=== PATIENT | female | born 1970 | race Caucasian/White ===

== ENCOUNTER 2022-12-08 11:13 | Day surgery (SDC) | payer OTHER, SELFPAY ==
[2022-12-01 15:41] VITALS: BMI 34.6
[2022-12-08] VITALS (8 sets, daily range): BP systolic 106–140; BP diastolic 47–77; PULSE 76–103; RESP 15–18; TEMP 36.1–36.6; O2SAT 97–100
[2022-12-08] MEDS: Lactated Ringers 1,000 ML 50 ML IVCONT (12:03)
--- NOTE | 2022-12-08 13:13 | HO.ANESPROP2 ---
[facility] Past Medical History Medical History Allergic rhinitis Anxiety Asthma B12 deficiency Breast cancer, right Chronic depression Hypothyroidism Iron deficiency anemia Obesity Osteopenia Surgical History Surgical History History of abdominoplasty History of arthrodesis History of carpal tunnel release History of cataract surgery History of cholecystectomy History of esophagogastroduodenoscopy (EGD) History of gastric bypass History of lumpectomy of right breast Hx of abdominal hysterectomy Hx of bilateral breast reduction surgery Hx of bilateral mastectomy Hx of section History of Problems with Anesthesia: No Social History Social History Are you a primary nurse healthcare manager to a significant other at home: No Do you presently have visiting nurse or other home services: No Patient Tobacco Use Status: Never used Tobacco Have you been hit, kicked, punched, or otherwise hurt by someone within the past year? If so, by whom?: No Are you DNR?: No Advance Directives: No Advance Directives Information Provided: Yes Advance Directives on File: No Recently lost weight without trying: No Eating poorly because of decreased appetite: No Nutrition Risks: No Nutritional Risk Meds Allergies Allergy/AdvReac Type Severity Reaction Status Date / Time Penicillins Allergy Hives Verified 12/08/22 11:32 povidone-iodine Allergy Hives Verified 12/08/22 11:32 [From Betadine] NSAIDS (Non-Steroidal AdvReac Stomach Verified 12/08/22 11:32 Anti-Inflamma Upset, Ulcer Active Medications: Current Medications Lactated Ringer's (Lr) 1,000 mls @ 50 mls/hr IVCONT .Q20H LESTER Last Admin: 12/08/22 12:03 Dose: 50 mls/hr Home Medications Medication Instructions Recorded Confirmed Last Taken Type acetaminophen 500 mg tablet 1,000 mg PO QID PRN Pain 12/01/22 12/01/22 Unknown History cholecalciferol (vitamin D3) 25 25 mcg PO DAILY 12/01/22 12/01/22 Unknown History mcg (1,000 unit) capsule (Vitamin D3) cyanocobalamin (vitamin B-12) 1,000 mcg IM QMONTH 12/01/22 12/01/22 Unknown History 1,000 mcg/mL injection solution cyclobenzaprine 5 mg tablet 5 mg PO BID PRN Muscle Spasm 12/01/22 12/01/22 Unknown History ferrous sulfate 325 mg (65 mg 325 mg PO DAILY 12/01/22 12/08/22 11/23/22 History iron) tablet fluticasone propionate 50 1 spray intranasal Q12H 12/01/22 12/01/22 Unknown History mcg/actuation nasal spray,suspension hydroxyzine HCl 10 mg tablet 10 mg PO TID PRN Anxiety 12/01/22 12/01/22 Unknown History levocetirizine 5 mg tablet 5 mg PO QPM 12/01/22 12/01/22 Unknown History levothyroxine 137 mcg tablet 137 mcg PO DAILY 12/01/22 12/08/22 12/08/22 07:15 History melatonin 10 mg tablet 20 mg PO BEDTIME 12/01/22 12/01/22 Unknown History sertraline 50 mg tablet 50 mg PO DAILY 12/01/22 12/01/22 Unknown History Exam Exam Date and Time: December 08, 2022 1313 Height,Weight and Vital Signs: Height 5 ft Weight 80.5 kg Last Vital Signs Temp 96.9 F 12/08/22 11:43 Pulse 76 12/08/22 11:43 Resp 15 12/08/22 11:43 BP 106/47 L 12/08/22 11:43 Pulse Ox 99 12/08/22 11:43 O2 Del Method 12/08/22 11:43 Airway Mallampati Class: II (Chipped upper left central incisor) Neck ROM: Full Loose/Missing/Broken Teeth: Yes and Upper Heart: RRR Lungs: CTA Assessment and Plan Assessment Anesthesia Assessment: Anesthesia Plan Discussed and Chart Reviewed Final Anesthetic Review History of Problems with Anesthesia: No NPO: Yes ASA Class: II Final Preanesthetic Review: Meds/Allgs Chart Reviewed, Consent Obtained/Reviewed and Anes Risks/Benef Reviewed Patient Risk: Low Procedure Risk: Low Anesthetic Plan Anesthetic Plan: GA Disposition: Standard PACU
[2022-12-08] MEDS: Acetaminophen 325 MG TABLET 650 MG PO (15:11)
[2022-12-08] MEDS: Tetracaine HCl/PF 0.5% Oph Sol 4 ML DROPS 1 DROP EYE-BOTH (15:27)
--- NOTE | 2022-12-08 16:04 | HO.OPHTHAL ---
Ophthalmology Operative Note Date of Service: 12/08/22 Narrative: the preoperative diagnosis unknown. Postoperative diagnosis brown syndrome left eye. Procedure posterior 7/8 tenotomy of the left superior oblique muscle. Surgeon Dr. Jones. Anesthesia general. Complications none. The patient was brought to the operating room placed under general anesthesia. The patient's eyes were prepped and draped in the usual sterile ophthalmic fashion. A lid speculum was placed in the left eye and forced ductions revealed some resistance to elevation in abduction of that eye. There was no evidence of previous surgeries. An incision was made down to bare sclera in the superior temporal fornix. The superior rectus muscle was hooked and the superior oblique carefully identified and grasped with a small tenotomy hook. The 2nd tenotomy hook was used to separate the posterior portion of the tendon which was then disinserted from the globe and removed for distance of approximately 9 mm from the insertion. Repeated forced ductions revealed no resistance to elevation in adduction. Conjunctiva was closed with interrupted Vicryl sutures. The patient was then awoken from general anesthesia and discharged to postoperative recovery in good condition.
== END 2022-12-08 15:58 | disposition home or self-care (01) ==
PROVIDERS: PCP Internal Medicine; Visit Provider Ophthalmology
DX: H50.6 Mechanical strabismus (principal); H53.2 Diplopia; J45.909 Unspecified asthma, uncomplicated; D50.9 Iron deficiency anemia, unspecified; M85.80 Other specified disorders of bone density and structure, unspecified site; E66.9 Obesity, unspecified; Z85.3 Personal history of malignant neoplasm of breast; F32.9 Major depressive disorder, single episode, unspecified; Z88.0 Allergy status to penicillin; Z91.041 Radiographic dye allergy status; Z79.51 Long term (current) use of inhaled steroids; Z79.899 Other long term (current) drug therapy
CPT/HCPCS: 67318; J1100; J2250; J2405; J3010

== ENCOUNTER 2023-04-27 11:40 | Day surgery (SDC) | payer OTHER, SELFPAY ==
[2023-04-22 08:23] VITALS: BMI 35.5
--- OUTSIDE RECORDS SUMMARY | 2023-04-27 11:42 | XMS_ITS | Continuity of Care Document ---
Author Name Unknown Organization [facility] Address [address] [place] [address]- Care Team Providers Care Board Stacker Name Role Phone Eze BOWEN, Zeinab Primary Care Physician [place] [facility] 02/15/23 - 03/17/23 [facility]/[address] [address]- [place] Allergies, Adverse Reactions, Alerts Substance Reaction Severity Status penicillin HIVES Active Betadine hives Active NSAIDs Ulcer Active Immunizations Given and Recorded Vaccine Date Status Refusal Reason influenza virus vaccine, inactivated 07/27/22 Give n influenza virus vaccine, inactivated 10/07/21 Give n influenza virus vaccine, inactivated 08/26/20 Rush rded influenza virus vaccine, inactivated 10/20/18 Give n influenza virus vaccine, inactivated 1 08/05/10 Gi santosh influenza virus vaccine, inactivated 2 09/17/09 Gi santosh SARS-CoV-2 (COVID-19) mRNA BNT-162b2 vac 10/28/21 Given SARS-CoV-2 (COVID-19) mRNA BNT-162b2 vac 10/07/21 Given Influenza Virus Vaccine (oldterm) 3 10/25/19 Recor ded hepatitis B adult vaccine 08/21/19 Recorded hepatitis B adult vaccine 11/17/18 Given hepatitis B adult vaccine 10/20/18 Given Hepatitis A Adult Vaccine 08/21/19 Recorded Hepatitis A Adult Vaccine 10/20/18 Given influenza virus vaccine, live 4 09/17/09 Given 1Admin Note: VIS07/18/09 gIVEN 2Admin Note: flu vaccine sanofi-pasteur VIS 03/2009 INNER 3Result Comment: Pharmacy 4Admin Note: SANOFI-PASTEUR VIS 04/15/2009 OUTER Medications acetaminophen 500 mg oral tablet 2 tablet = 1,000 mg, By Mouth, 3 times a day, PRN as needed for pain, # 50 tablet, 5 Refills, Maintenance, 11/10/20 11:56:00 EST, Tablet, [facility]/pharmacy #[id number], 152.4, cm, 11/07/20 12:02:00 EST, Height,78, kg, 05/15/20 8:23:00 EDT, Dry Weight Start Date: 11/10/20 Status: Ordered clotrimazole 1% topical cream 1 application, Topically, 2 times a day, apply thin later to affected area twice a day., # 30 Gm, 0Refills, Maintenance, 03/15/23 11:39:00 EDT, Cream, [facility], Partial fill uponpatient request if the prescription is for a schedule I... Start Date: 03/15/23 Status: Ordered cyanocobalamin 1000 mcg/ml injectable solution 1 mL = 1,000 mcg, Intramuscular, Every 30 days, # 1 mL, 11 Refills, Maintenance, 07/27/22 12:30:00 EDT, Solution, [facility], 152.4, cm, 07/27/22 11:29:00 EDT, Height, 83.8, kg, 06/24/22 9:47:00 EDT, Dry Weight Start Date: 07/27/22 Status: Ordered cyclobenzaprine 5 mg oral tablet 1 tablet = 5 mg, By Mouth, 2 times a day, PRN back pain, hold trazodone if taking it at HS, allow at least 5 hours between this mediation and hydroxyzine or lorazepam. do not drive after taking this medication, # 60 tablet, 0 Refills, Maintenance, ... Start Date: 12/21/21 Status: Ordered diclofenac 1% topical gel 1 application, Topically, 4 times a day, # 100 Gm, 0 Refills, Maintenance, 04/22/22 14:54:00 EDT, Gel, [facility], Partial fill upon patient request if the prescription is for a schedule II opioid drug., 152.4, cm, 04/22/22 13:52:00 EDT,... Start Date: 04/22/22 Status: Ordered ferrous sulfate 325 mg oral enteric coated tablet 325 mg, 1, tablet, By Mouth, Daily, may take with food to minimize abdominal discomfort. DISCONTINUE MULTIVITAMIN, # 30 tablet, Refills 11, Tot. Refills 11, Maintenance, 08/09/22 18:53:00 EDT, Route to Pharmacy Electronically, [id number]... Start Date: 08/09/22 Status: Ordered Flonase 50 mcg/inh nasal spray 1 sprays, Nares, Both, 2 times a day, # 16 Gm, 6 Refills, Maintenance, 02/15/22 14:24:00 EDT, [place], [facility], Partial fill upon patient request if the prescription is for a schedule II opioid drug., 1 sprays Nares, Both 2 times a day,... Start Date: 02/15/22 Status: Ordered hydrOXYzine hydrochloride 10 mg oral tablet 1 tablet = 10 mg, By Mouth, 3 times a day, PRN anxiety/panic attack, covering for Psych.., # 30 tablet, 0 Refills, Maintenance, 09/21/22 15:57:00 EST, Tablet, [facility], Partial fill upon patient request if the prescription is for a katherine... Start Date: 09/21/22 Stop Date: 10/21/22 Status: Ordered Insulin Syringe, BD Ultra-Fine 1 cc 31 G x 8 mm (5/16in) See Instructions, # 12 each, Refills 1, Tot. Refills 1, Maintenance, dx: to use with B12 injectionsmonthly, 07/27/22 12:30:00 EDT, Compound, 152.4, cm, 07/27/22 11:29:00 EDT, Height, 83.8, kg, 06/24/22 9:47:00 EDT, Dry Weight Start Date: 07/27/22 Status: Ordered levocetirizine 5 mg oral tablet 1 tablet = 5 mg, By Mouth, Daily in PM, # 30 tablet, 6 Refills, Maintenance, 02/15/22 14:09:00 EDT,Tablet, [facility], Partial fill upon patient request if the prescription is for a schedule II opioid drug., 1 tablet By Mouth Daily in P... Start Date: 02/15/22 Stop Date: 09/13/22 Status: Ordered levothyroxine 0.112 mg oral tablet 1 tablet = 112 mcg, By Mouth, Daily, # 90 tablet, 1 Refills, Maintenance, 03/01/23 11:03:00 EDT, Tablet, [facility], Partial fill upon patient request if the prescription is for a schedule II opioid drug., 152.4, cm, 11/18/22 13:42:00 ES... Start Date: 03/01/23 Stop Date: 08/28/23 Status: Ordered melatonin 10 mg oral tablet 1 tablet = 10 mg, By Mouth, Daily at bedtime, OTC, 0 Refills, Maintenance, 04/22/22 14:43:00 EDT, Partial fill upon patient request if the prescription is for a schedule II opioid drug. Start Date: 04/22/22 Status: Ordered sertraline 50 mg oral tablet 1 tablet = 50 mg, By Mouth, Daily, # 30 tablet, 5 Refills, Maintenance, 09/28/22 10:47:00 EST, [facility], Please clarify instructions to patient, as I initially sent 25 mg, 152.4, cm, 08/20/22 16:02:00 EDT, Height, 83.8, kg, 06/24/22 9:... Start Date: 09/28/22 Stop Date: 03/27/23 Status: Ordered SUMAtriptan 25 mg oral tablet 1 tablet = 25 mg, By Mouth, Daily, PRN for migraine headache, may repeat dose after 2 hours up to amaximum of 2. Max of 9 tablets per month, # 9 tablet, 1 Refills, Maintenance, 02/24/23 15:40:00 EDT, Tablet, [facility], Partial fill upo... Start Date: 02/24/23 Status: Ordered Vitamin D3 1000 intl units oral tablet 1 tablet = 25 mcg, By Mouth, Daily, # 30 tablet, 11 Refills, Maintenance, 08/09/22 18:53:00 EDT, [facility], Partial fill upon patient request if the prescription is for a schedule II opioid drug., 152.4, cm, 07/27/22 11:29:00 EDT, [place]... Start Date: 08/09/22 Status: Ordered Zoloft 25 mg oral tablet 1 tablet = 25 mg, By Mouth, Daily, 0 Refills, Maintenance, 08/20/22 16:03:00 EDT, Partial fill uponpatient request if the prescription is for a schedule II opioid drug. Start Date: 08/20/22 Status: Ordered Problem List Condition Confirmation Course Effective Dates Status H ealth Status Informant Allergic rhinitis Confirmed Active Carcinoma of lower outer quadrant of right breast 1, 2 Confirmed Active Chronic depression Confirmed Active B12 deficiency Confirmed Active External hemorrhoids 3 Confirmed Active H/O abdominal hysterectomy 4 Confirmed Active Hypothyroidism Confirmed Active Iron deficiency anemia Confirmed Active Obese class II Confirmed Active Osteopenia 5, 6, 7 Confirmed Active 1-completed 7 years of endocrine therapy in 2021 2Status post bilateral mastectomy with implant reconstruction for stage I right breast cancer diagnosed in 2014 Status post prior breast-conserving surgery on the right followed by radiation therapy and AC to Taxol for hormone receptor negative, 3-Colonoscopy December 2018. Repeat in 10 years 4-and bilateral oophorectomy. Still has cervix. For fibroids 5-osteopenia femoral neck 2022 6-repeat in 2 [id number] 7-bone density done at [facility] on 07-24-19 Social History Social History Type Response Smoking Status Former smoker, quit more than 30 days ago entered on: 07/27/22 Sex Patient Care team information Care Team Personnel Name: Michelle De Leon Position: [facility] Onco RN Member Role: Primary Care Nurse Name: Angela Romero RN Position: [facility] RN Member Role: Primary Care Nurse Name: Anshul Fnin RN Position: [facility] RN Member Role: Primary Care Nurse Name: Zeinab Loo MD Position: [facility] Physician - Primary Care Member Role: PCP Address: Address: [address] [place] [id number]- Name: Tnoo Mcneal RN Position: [facility] RN Member Role: Primary Care Nurse Care Team Related Persons Name: ALEYDA FREIRE Address: home [address] [place] [address] Name: JODY MOMIN Address: home [address] [place] [address] Name: TERRELL JUAREZ Address: home [address] [address] Name: CARIDAD RUVALCABA Address: home [address] [place] [id number]
--- OUTSIDE RECORDS SUMMARY | 2023-04-27 11:42 | XMS_ITS | Continuity of Care Document ---
Author Name Unknown Organization [facility] Address Unknown Care Team Providers Care Strategic Planner Name Role Phone Eze BOWEN, Zeinab Primary Care Physician Encounter [facility] [place] Date(s): 04/20/22 - 05/20/22 [facility] Allergies, Adverse Reactions, Alerts Substance Reaction Severity Status NSAIDs Ulcer Active penicillin HIVES Active Betadine hives Active Immunizations Given and Recorded Vaccine Date Status Refusal Reason SARS-CoV-2 (COVID-19) mRNA BNT-162b2 vac 10/28/21 Given SARS-CoV-2 (COVID-19) mRNA BNT-162b2 vac 10/07/21 Given influenza virus vaccine, inactivated 10/07/21 Give n influenza virus vaccine, inactivated 08/26/20 Rush rded influenza virus vaccine, inactivated 10/20/18 Give n influenza virus vaccine, inactivated 1 08/05/10 Gi santosh influenza virus vaccine, inactivated 2 09/17/09 Gi santosh Influenza Virus Vaccine (oldterm) 3 10/25/19 Recor [...] 5 Refills, Maintenance, 11/10/20 11:56:00 EST, Tablet, [facility] #1972, 152.4, cm, 11/07/20 12:02:00 EST, Height,78, kg, 05/15/20 8:23:00 EDT, Dry Weight Start Date: 11/10/20 Status: Ordered cyanocobalamin 1000 mcg/ml injectable solution 1 mL = 1,000 mcg, Intramuscular, Every 30 days, # 1 mL, 11 Refills, Maintenance, 07/09/21 9:16:00 EDT, Solution, [facility]/pharmacy #1972, 152.4, cm, 07/03/21 10:11:00 EDT, Height, 77.2, kg, 01/22/21 12:48:00 EDT, Dry Weight Start Date: 07/09/21 Status: Ordered cyclobenzaprine 5 mg oral tablet [...] 13:52:00 EDT,... Start Date: 04/22/22 Status: Ordered escitalopram 10 mg oral tablet 1 tablet = 10 mg, By Mouth, Daily, to take along 20 mg for a total of 30 mg per day. covering for Psych, # 30 tablet, 3 Refills, Maintenance, 04/22/22 14:33:00 EDT, Tablet, [facility], Partial fill upon patient request if the prescriptio... Start Date: 04/22/22 Stop Date: 08/20/22 Status: Ordered escitalopram 20 mg oral tablet 1 tablet = 20 mg, By Mouth, Daily, to take along 10 mg for a total of 30 mg per day. covering for psych, # 30 tablet, 3 Refills, Maintenance, 04/22/22 14:32:00 EDT, [facility], Partial fill upon patient request if the prescription is for... Start Date: 04/22/22 Stop Date: 08/20/22 Status: Ordered Flonase 50 mcg/inh nasal spray 1 sprays, Nares, Both, 2 times a day, # 16 Gm, 6 Refills, Maintenance, 02/15/22 14:24:00 EDT, [place], [facility], Partial fill upon patient request if the prescription is for a schedule II opioid drug., 1 sprays Nares, Both 2 times a day,... Start Date: 02/15/22 Status: Ordered hydrOXYzine hydrochloride 10 mg oral tablet 1 tablet = 10 mg, By Mouth, 3 times a day, PRN anxiety/panic attack, covering for Psych.., # 30 tablet, 0 Refills, Maintenance, 04/22/22 15:07:00 EDT, Tablet, [facility], Partial fill upon patient request if the prescription is for a katherine... Start Date: 04/22/22 Stop Date: 05/22/22 Status: Ordered Insulin Syringe, BD Ultra-Fine 1 cc 31 G x 8 mm (5/16in) See Instructions, # 12 each, Refills 1, Tot. Refills 1, Maintenance, dx: to use with B12 injectionsmonthly, 07/21/20 7:55:00 EDT, Compound, 152.4, cm, 05/30/20 11:59:00 EDT, Height, 78, kg, 05/15/208:23:00 EDT, Dry Weight Start Date: 07/21/20 Status: Ordered levocetirizine 5 mg oral tablet 1 tablet = 5 mg, By Mouth, Daily in PM, # 30 tablet, 6 Refills, Maintenance, 02/15/22 14:09:00 EDT,Tablet, [facility], Partial fill upon patient request if the prescription is for a schedule II opioid drug., 1 tablet By Mouth Daily in P... Start Date: 02/15/22 Stop Date: 09/13/22 Status: Ordered levothyroxine 0.137 mg oral tablet 1 tablet, By Mouth, Daily, # 30 tablet, 3 Refills, Maintenance, 03/16/22 9:06:00 EDT, [facility], 152.4, cm, 02/15/22 13:44:00 EDT, Height, 81.9, kg, 01/07/22 13:01:00 EDT, Dry Weight Start Date: 03/16/22 Stop Date: 07/14/22 Status: Ordered meclizine 25 mg oral tablet 1 tablet = 25 mg, By Mouth, 3 times a day, PRN for dizziness, do not take at same time as hydroxyzine or flexeril, # 30 tablet, 0 Refills, Maintenance, 04/22/22 14:42:00 EDT, Tablet, [facility], Partial fill upon patient request if the p... Start Date: 04/22/22 Status: Ordered melatonin 10 mg oral tablet 1 tablet = 10 mg, By Mouth, Daily at bedtime, OTC, 0 Refills, Maintenance, 04/22/22 14:43:00 EDT, Partial fill upon patient request if the prescription is for a schedule II opioid drug. Start Date: 04/22/22 Status: Ordered multivitamin Multiple Vitamins oral tablet 1 tablet, By Mouth, Daily, # 30 tablet, 11 Refills, Maintenance, 04/22/22 14:34:00 EDT, Tablet, [facility]/pharmacy #1972, Partial fill upon patient request if the prescription is for a schedule II opioid drug., 1 tablet By Mouth Daily, 152.4, cm, 04/22/22 1... Start Date: 04/22/22 Status: Ordered SUMAtriptan 25 mg oral tablet 1 tablet = 25 mg, By Mouth, Daily, PRN for migraine headache, may repeat dose after 2 hours up to amaximum of 2. Max of 9 tablets per month, # 9 tablet, 1 Refills, Maintenance, 04/22/22 14:53:00 EDT, Tablet, [facility], Partial fill upo... Start Date: 04/22/22 Status: Ordered Problem List Condition Effective Dates Status Health Status Inform ant Carcinoma of lower outer reinaldo drant of right breast(Confirmed) 1 Active Chronic depression(Confirmed) Active B12 deficiency(Confirmed) Active External hemorrhoids(Confirmed) 2 Active H/O abdominal hysterectomy(C onfirmed) 3 Active Hypothyroidism(Confirmed) Active Iron deficiency anemia(Confirmed) Active Obese class II(Confirmed) Active Osteopenia(Confirmed) 4, 5 Active Bilateral breast cancer(Confirmed) 6 Active 1Status post bilateral mastectomy with implant reconstruction for stage I right breast cancer diagnosed in 2015 Status post prior breast-conserving surgery on the right followed by radiation therapy and AC to Taxol for hormone receptor negative, 2-Colonoscopy December 2018. Repeat in 10 years 3-and bilateral oophorectomy. Still has cervix. For fibroids 4-repeat in 2 [id number] 5-bone density done at [facility] on 07-24-19 6s/p bilateral mastectomy and immediate reconstruction. Social History Social History Type Response Smoking Status Former smoker, quit more than 30 days ago entered on: 09/22/21 Sex
--- OUTSIDE RECORDS SUMMARY | 2023-04-27 11:42 | XMS_ITS | Continuity of Care Document ---
Author Name Unknown Organization [facility] Address Unknown Care Team Providers Care Radiological Technician Name Role Phone Eze BOWEN, Zeinab Primary Care Physician Encounter [facility] Date(s): 09/14/21 - 10/14/21 [facility] Allergies, Adverse Reactions, Alerts Substance Reaction Severity Status Betadine hives Active NSAIDs Ulcer Active penicillin HIVES Active Immunizations Given and Recorded Vaccine Date Status Refusal Reason influenza virus vaccine, inactivated 10/07/21 Give n influenza virus vaccine, inactivated 08/26/20 Rush rded influenza virus vaccine, inactivated 10/20/18 Give n influenza virus vaccine, inactivated 1 08/05/10 Gi santosh influenza virus vaccine, inactivated 2 09/17/09 Gi santosh SARS-CoV-2 (COVID-19) mRNA BNT-162b2 vac 10/07/21 Given [...] Dry Weight Start Date: 11/10/20 Status: Ordered citalopram 40 mg oral tablet TAKE 1 TABLET BY MOUTH EVERYDAY AT BEDTIME Start Date: 01/21/20 Status: Ordered cyanocobalamin 1000 mcg/ml injectable solution 1 mL = 1,000 mcg, Intramuscular, Every 30 days, # 1 mL, 11 Refills, Maintenance, 07/09/21 9:16:00 EDT, Solution, [facility]/pharmacy #1972, 152.4, cm, 07/03/21 10:11:00 EDT, Height, 77.2, kg, 01/22/21 12:48:00 EDT, Dry Weight Start Date: 07/09/21 Status: Ordered hydrOXYzine hydrochloride 25 mg oral tablet TAKE 1/2 1 UP TO 3 TIMES A DAY FOR ANXIETY Start Date: 01/21/20 Status: Ordered Insulin Syringe, BD Ultra-Fine 1 cc 31 G x 8 mm (5/16in) See Instructions, # 12 each, Refills 1, Tot. Refills 1, Maintenance, dx: to use with B12 injectionsmonthly, 07/21/20 7:55:00 EDT, Compound, 152.4, cm, 05/30/20 11:59:00 EDT, Height, 78, kg, :23:00 EDT, Dry Weight Start Date: 07/21/20 Status: Ordered levothyroxine 0.137 mg oral tablet 1 tablet = 137 mcg, By Mouth, Daily, REPEAT LABS IN 6-8 WEEKS, # 60 tablet, 0 Refills, Maintenance,09/17/21 9:26:00 EST, Tablet, [facility]/pharmacy #1972, she lost her bottle. Please allow earlier refill,152.4, cm, 07/03/21 10:11:00 EDT, Height, 77.2, kg,... Start Date: 09/17/21 Status: Ordered LORazepam 0.5 mg oral tablet TAKE 1 TABLET ONLY NEEDED FOR PANIC ATTACK, NO MORE THAN 3 TIMES PER WEEK. Start Date: 01/21/20 Status: Ordered multivitamin Multiple Vitamins oral tablet 1 tablet, By Mouth, Daily, # 30 tablet, 11 Refills, Maintenance, 07/09/21 9:17:00 EDT, Tablet, [facility]/pharmacy #1972, Partial fill upon patient request if the prescription is for a schedule II opioid drug., 1 tablet By Mouth Daily, 152.4, cm, 07/03/21 10... Start Date: 07/09/21 Status: Ordered Propranolol Refills 0, Maintenance, 01/08/21 14:30:00 EDT, Partial fill upon patient request if the prescription is for a schedule II opioid drug. Start Date: 01/08/21 Status: Ordered tamoxifen 20 mg oral tablet 1 tablet = 20 mg, By Mouth, Daily, # 90 tablet, 3 Refills, Maintenance, 03/31/20 15:44:00 EDT, [facility], 152.4, cm, 03/05/20 8:02:00 EDT, Height, 73, kg, 03/05/20 8:02:00 EDT, Dry Weight Start Date: 03/31/20 Stop Date: 03/26/21 Status: Ordered traZODone 100 mg oral tablet TAKE 1 TO 2 TABLETS BY MOUTH EVERY DAY AT BEDTIME NEEDED FOR SLEEP Start Date: 01/21/20 Status: Ordered triamcinolone 0.1% topical cream 1 application, Topically, 2 times a day, apply a thin film to affected area, # 15 Gm, 0 Refills, Maintenance, 01/08/21 14:34:00 EDT, Cream, [facility], Partial fill upon patient request if the prescription is for a schedule II opioid drug., 1... Start Date: 01/08/21 Status: Ordered Ventolin HFA 108 mcg/inh inhalation aerosol with adapter 1 puffs, Inhalation, 4 times a day, PRN for wheezing, # 18 Gm, 0 Refills, Maintenance, 09/14/21 13:14:00 EST, Aerosol, [facility], Partial fill upon patient request if the prescription is fora schedule II opioid drug., 152.4, cm, 07/03/21 10:... Start Date: 09/14/21 Status: Ordered Problem List Condition Effective Dates Status Health Status Inform ant Carcinoma of lower outer reinaldo drant of right breast(Confirmed) 1 Active Chronic depression(Confirmed) Active B12 deficiency(Confirmed) Active External hemorrhoids(Confirmed) 2 Active H/O abdominal hysterectomy(C onfirmed) 3 Active Hypothyroidism(Confirmed) Active Iron deficiency anemia(Confirmed) Active Osteopenia(Confirmed) 4, 5 Active Bilateral breast [...] has cervix. For fibroids 4-repeat in 2 [id number] 5-bone density done at [facility] on 07-24-19 6s/p bilateral mastectomy and immediate reconstruction. Social History Social History Type Response Smoking Status Former smoker, quit more than 30 days ago entered on: 09/22/21 Sex
--- OUTSIDE RECORDS SUMMARY | 2023-04-27 11:42 | XMS_ITS | Continuity of Care Document ---
Author Name Unknown Organization [facility] Address [address] [place] [address]- Care Team Providers Care Virology Teacher Name Role Phone Eze BOWEN, Zeinab Primary Care Physician ( [phone] Encounter [facility] Date(s): 07/27/22 - 08/26/22 [facility]/[address] [address]- [place] Allergies, Adverse Reactions, Alerts Substance Reaction [...] 5 Refills, Maintenance, 11/10/20 11:56:00 EST, Tablet, [facility]/pharmacy #1972, 152.4, cm, 11/07/20 12:02:00 EST, Height,78, kg, 05/15/20 8:23:00 EDT, Dry Weight Start Date: 11/10/20 Status: Ordered cyanocobalamin 1000 mcg/ml injectable solution 1 mL = 1,000 mcg, Intramuscular, Every 30 days, # 1 mL, 11 Refills, Maintenance, 07/27/22 12:30:00 EDT, Solution, [facility] #94, 152.4, cm, 07/27/22 11:29:00 EDT, [...] Maintenance, 04/22/22 14:54:00 EDT, Gel, [facility] #94, Partial fill upon patient request [...] EDT, Route to Pharmacy Electronically, [facility] #94... Start Date: 08/09/22 Status: Ordered Flonase 50 mcg/inh nasal spray 1 sprays, Nares, Both, 2 times a day, # 16 Gm, 6 Refills, Maintenance, 02/15/22 14:24:00 EDT, [place], [facility] #94, Partial fill upon patient request if the prescription is for a schedule II opioid drug., 1 sprays Nares, Both 2 times a day,... Start Date: 02/15/22 Status: Ordered hydrOXYzine hydrochloride 10 mg oral tablet 1 tablet = 10 mg, By Mouth, 3 times a day, PRN anxiety/panic attack, covering for Psych.., # 30 tablet, 0 Refills, Maintenance, 07/27/22 12:31:00 EDT, Tablet, [facility] #94, Partial fill upon patient request if the prescription is for a katherine... Start Date: 07/27/22 Stop Date: 08/26/22 Status: Ordered Insulin Syringe, BD Ultra-Fine 1 [...] 02/15/22 Stop Date: 09/13/22 Status: Ordered levothyroxine 150 mcg (0.15 mg) oral tablet 1 tablet = 150 mcg, By Mouth, Daily, repeat labs in 6 weeks. NEW HIGHER DOSE, # 30 tablet, 1 Refills, Maintenance, 08/09/22 18:52:00 EDT, Tablet, [facility] #94, Partial fill upon patient request if the prescription is for a schedule II opio... Start Date: 08/09/22 Status: Ordered melatonin 10 mg oral tablet 1 tablet = 10 mg, By Mouth, Daily at bedtime, OTC, 0 Refills, Maintenance, 04/22/22 14:43:00 EDT, Partial fill upon patient request if the prescription is for a schedule II opioid drug. Start Date: 04/22/22 Status: Ordered sertraline 50 mg oral tablet See Instructions, take HALF A TABLET x 7 days, then 1 tablet daily, # 30 tablet, 1 Refills, Maintenance, 07/27/22 18:02:00 EDT, [facility], Please clarify instructions to patient, as I initially sent 25 mg, 152.4, cm, 07/27/22 11:29:00 E... Start Date: 07/27/22 Status: Ordered SUMAtriptan 25 mg oral tablet 1 tablet = 25 mg, By Mouth, Daily, PRN for migraine headache, may repeat dose after 2 hours up to amaximum of 2. Max of 9 tablets per month, # 9 tablet, 1 Refills, Maintenance, 04/22/22 14:53:00 EDT, Tablet, [facility] #[facility], Partial fill upo... Start Date: 04/22/22 Status: Ordered Vitamin D3 1000 intl units oral tablet 1 tablet = 25 mcg, By Mouth, Daily, # 30 tablet, 11 Refills, Maintenance, 08/09/22 18:53:00 EDT, [facility], Partial fill upon patient request if the prescription is for a schedule II opioid drug., 152.4, cm, 07/27/22 11:29:00 EDT, [place]... Start Date: 08/09/22 Status: Ordered Zoloft 25 [...] Obese class II Confirmed Active Osteopenia 5, 6 Confirmed Active 1-completed 7 years of endocrine therapy in 2021 2Status post bilateral mastectomy with implant reconstruction for stage I right breast cancer diagnosed in 2015 Status post prior breast-conserving surgery on the right followed by radiation therapy and AC to Taxol for hormone receptor negative, 3-Colonoscopy December 2018. Repeat in 10 years 4-and bilateral oophorectomy. Still has cervix. For fibroids 5-repeat in 2 [id number] 6-bone density done at [facility] on 07-24-19 Social History Social History Type Response Smoking Status Former smoker, quit more than 30 days ago entered on: 07/27/22 Sex Patient Care team information Care Team Personnel Name: Michelle De Leon Position: [facility] Onco RN Member Role: Primary Care Nurse Name: Angela Romero RN Position: S RN Member Role: Primary Care Nurse Name: Anshul Finn RN Position: [facility] RN Member Role: Primary Care Nurse Name: Zeinab Loo MD Position: [facility] Primary Care Physician Member Role: PCP Address: Address: [address] [place] [id number] Name: Tono Mcneal RN Position: [facility] RN Member Role: Primary Care Nurse Care Team Related Persons Name: ALEYDA FREIRE Address: home [address] [place] [address] Name: JODY MOMIN Address: home [address] [facility] [address] [place] [address] Name: TERRELL JUAREZ Address: home [address] [address] Name: CARIDAD RUVALCABA Address: home [address] [place] [id number]
--- OUTSIDE RECORDS SUMMARY | 2023-04-27 11:42 | XMS_ITS | Continuity of Care Document ---
Author Name Unknown Organization [facility] Address [address] [place] [address] [address] [place] [address]- Care Team Providers Care Plug Cutter Name Role Phone Eze BOWEN, Zeinab Primary Care Physician Encounter [facility] Date(s): 08/20/22 - 08/27/22 [facility] [address] [place] [address]- Attending Physician: Vinayak Persaud MD Allergies, Adverse Reactions, Alerts Substance Reaction Severity [...] 5 Refills, Maintenance, 11/10/20 11:56:00 EST, Tablet, [facility]/pharmacy #1972, 152.4, cm, 11/07/20 12:02:00 [...] Gm, 6 Refills, Maintenance, 02/15/22 14:24:00 EDT, [place], [facility], Partial fill [...] opioid drug., 152.4, cm, 07/27/22 11:29:00 EDT, Lydia... Start Date: 08/09/22 Status: Ordered Zoloft 25 [...] has cervix. For fibroids 5-repeat in 2 [id number] 6-bone density done at [facility] on 07-24-19 Vital Signs Most recent to oldest [Reference Range]: 1 Height 152.4 cm (08/20/22 4:02 PM) Social History Social History Type Response Smoking Status Former smoker, quit more than 30 days ago entered on: 07/27/22 Sex Patient Care team information Care Team Personnel Name: Michelle De Leon Position: [facility] Onco RN Member Role: Primary Care Nurse Name: Angela Romero RN Position: S RN Member Role: Primary Care Nurse Name: Anshul Finn RN Position: [facility] RN Member Role: Primary Care Nurse Name: Zeinab Loo MD Position: [facility] Primary Care Physician Member Role: PCP Address: Address: [address] [place] [id number] Name: Tono Mcneal RN Position: [facility] RN Member Role: Primary Care Nurse Care Team Related Persons Name: ALEYDA FREIRE Address: home [address] [place] [address] Name: JODY MOMIN Address: home [address] [facility] [address] [place] [address] Name: TERRELL JUAREZ Address: home [address] [address] Name: CARIDAD RUVALCABA Address: home [address] [place] [id number]
--- OUTSIDE RECORDS SUMMARY | 2023-04-27 11:42 | XMS_ITS | Continuity of Care Document ---
Author Name Unknown Organization [facility] Address Unknown Care Team Providers Care Product Owner Name Role Phone Eze BOWEN, Zeinab Primary Care Physician Encounter [facility] Date(s): 08/14/21 - 09/13/21 [facility] Allergies, Adverse Reactions, Alerts Substance Reaction Severity Status penicillin HIVES Active Betadine hives Active NSAIDs Ulcer Active Immunizations Given and Recorded Vaccine Date Status Refusal Reason Influenza Virus Vaccine (oldterm) 1 10/25/19 Recor ded hepatitis B adult vaccine 08/21/19 Recorded hepatitis B adult vaccine 11/17/18 Given hepatitis B adult vaccine 10/20/18 Given Hepatitis A Adult Vaccine 08/21/19 Recorded Hepatitis A Adult Vaccine 10/20/18 Given influenza virus vaccine, inactivated 10/20/18 Give n influenza virus vaccine, inactivated 2 08/05/10 Gi santosh influenza virus vaccine, inactivated 3 09/17/09 Gi santosh influenza virus vaccine, live 4 09/17/09 Given 1Result Comment: Pharmacy 2Admin Note: VIS07/18/09 gIVEN 3Admin Note: flu vaccine sanofi-pasteur VIS 03/2009 INNER 4Admin Note: SANOFI-PASTEUR VIS 04/15/2009 OUTER Medications acetaminophen 500 mg oral tablet 2 tablet = 1,000 mg, By Mouth, 3 times a day, PRN as needed for pain, # 50 tablet, 5 Refills, Maintenance, 11/10/20 11:56:00 EST, Tablet, [facility]/pharmacy #1972, 152.4, cm, 11/07/20 12:02:00 EST, Height,78, kg, 05/15/20 8:23:00 EDT, Dry Weight Start Date: 11/10/20 Status: Ordered citalopram 40 mg oral tablet TAKE 1 TABLET BY MOUTH EVERYDAY AT BEDTIME Start Date: 01/21/20 Status: Ordered cyanocobalamin 1000 mcg/ml injectable solution 1 mL = 1,000 mcg, Intramuscular, Every 30 days, # 1 mL, 11 Refills, Maintenance, 07/09/21 9:16:00 EDT, Solution, [facility]/pharmacy #1972, 152.4, cm, 07/03/21 10:11:00 EDT, Height, 77.2, kg, 01/22/21 12:48:00 EDT, Dry Weight Start Date: 07/09/21 Status: Ordered hydrOXYzine hydrochloride 25 mg oral tablet TAKE 1/2 1 UP TO 3 TIMES A DAY FOR ANXIETY Start Date: 01/21/20 Status: Ordered Insulin Syringe, BD Ultra-Fine 1 cc 31 G x 8 mm (516in) See Instructions, # 12 each, Refills 1, Tot. Refills 1, Maintenance, dx: to use with B12 injectionsmonthly, 07/21/20 7:55:00 EDT, Compound, 152.4, cm, 05/30/20 11:59:00 EDT, Height, 78, kg, :23:00 EDT, Dry Weight Start Date: 07/21/20 Status: Ordered levothyroxine 0.137 mg oral tablet 1 tablet = 137 mcg, By Mouth, Daily, NEW HIGHER DOSE, REPEAT LABS IN 6-8 WEEKS, # 60 tablet, 0 Refills, Maintenance, 09/01/21 14:08:00 EST, Tablet, [facility], Partial fill upon patient request if the prescription is for a schedule II opioid d... Start Date: 09/01/21 Status: Ordered LORazepam 0.5 mg oral tablet TAKE 1 TABLET ONLY NEEDED FOR PANIC ATTACK, NO MORE THAN 3 TIMES PER WEEK. Start Date: 01/21/20 Status: Ordered multivitamin Multiple Vitamins oral tablet 1 tablet, By Mouth, Daily, # 30 tablet, 11 Refills, Maintenance, 07/09/21 9:17:00 EDT, Tablet, [facility], Partial fill upon patient request [...] drug., 1... Start Date: 01/08/21 Status: Ordered Problem List Condition Effective Dates [...] has cervix. For fibroids 4-repeat in 2 [id number] 5-bone density done at [facility] on 07-24-19 6s/p bilateral mastectomy and immediate reconstruction. Social History Social History Type Response Smoking Status Former smoker; Tobac co user in household: No; Type: Cigarettes; Other: quit smoking 12 yrs ago; Tobacco use times per day: 1-2 cigerettes per day; Number of years: 2; entered on: 07/22/15 Sex
--- OUTSIDE RECORDS SUMMARY | 2023-04-27 11:42 | XMS_ITS | Continuity of Care Document ---
Author Name Unknown Organization [facility] Address Unknown Care Team Providers Care Clinical Nurse Reviewer Name Role Phone Eze BOWEN, Zeinab Primary Care Physician [place] [facility] [place] [id number] Date(s): 04/22/22 - 05/22/22 [facility] Attending Physician: Essie Villareal Admitting Physician: Essie Villareal Referring Physician: AdmtrEssie Allergies, Adverse Reactions, Alerts Substance Reaction Severity [...] 5 Refills, Maintenance, 11/10/20 11:56:00 EST, Tablet, [facility]/pharmacy #1972, 152.4, cm, 11/07/20 12:02:00 EST, Height,78, kg, 05/15/20 8:23:00 EDT, Dry Weight Start Date: 11/10/20 Status: Ordered cyanocobalamin 1000 mcg/ml injectable solution 1 mL = 1,000 mcg, Intramuscular, Every 30 days, # 1 mL, 11 Refills, Maintenance, 07/09/21 9:16:00 EDT, Solution, [facility]/pharmacy #1972, 152.4, cm, 07/03/21 10:11:00 EDT, [...] Gm, 6 Refills, Maintenance, 02/15/22 14:24:00 EDT, [place], [facility], Partial [...] 0 Refills, Maintenance, 04/22/22 14:42:00 EDT, Tablet, [facility] #94, Partial fill upon patient request [...] 11 Refills, Maintenance, 04/22/22 14:34:00 EDT, Tablet, [facility]/pharmacy #1972, Partial fill upon patient request [...] 1 Refills, Maintenance, 04/22/22 14:53:00 EDT, Tablet, [facility] #94, Partial fill upo... Start Date: [...] has cervix. For fibroids 4-repeat in 2 [id number] 5-bone density done at [facility] on 07-24- 6s/p bilateral mastectomy and immediate reconstruction. Social History Social History Type Response Smoking Status Former smoker, quit more than 30 days ago entered on: 09/22/21 Sex
--- OUTSIDE RECORDS SUMMARY | 2023-04-27 11:42 | XMS_ITS | Continuity of Care Document ---
Author Name Unknown Organization [facility] Address [address] [place] [address] [address] [place] [address]- Care Team Providers Care Systems Engineering Manager Name Role Phone Eze BOWEN, Zeinab Primary Care Physician En[place] [facility] Date(s): 11/07/20 - 11/14/20 [facility] [address] [place], [place] [address] Attending Physician: Vinayak Persaud MD Referring Physician: Zeinab Loo MD Allergies, Adverse Reactions, Alerts Substance Reaction Severity Status Betadine Active NSAIDs Ulcer Active penicillin HIVES Active [...] Dry Weight Start Date: 11/10/20 Status: Ordered albuterol CFC free 90 mcg/inh inhalation aerosol 2, puffs, Inhalation, 4 times a day, PRN, # 18 Gm, Refills 3, Tot. Refills 3, Maintenance, 10/20/1912:28:52 EST, Aerosol, Route to Pharmacy Electronically, [id number], [facility]/pharmacy #1972, Compound Start Date: 10/20/18 Status: Ordered Calcium 600 +D oral tablet 1 tablet, By Mouth, 2 times a day, calcium 600, Vit D 400 units, # 60 tablet, 6 Refills, Maintenance, 01/21/20 14:42:00 EDT, [facility]/pharmacy #1972, 1 tablet By Mouth 2 times a day,x30 days,[id number], Vit D 400 units, 152.4, cm, 12/05/19 15:12:00... Start Date: 01/21/20 Stop Date: 08/18/20 Status: Ordered citalopram 40 mg oral tablet TAKE 1 TABLET BY MOUTH EVERYDAY AT BEDTIME Start Date: 01/21/20 Status: Ordered cyanocobalamin 1000 mcg/ml injectable solution 1 mL = 1,000 mcg, Intramuscular, Every 30 days, # 12 mL, 1 Refills, Maintenance, 10/03/20 11:27:00 EST, Solution, [facility]/pharmacy #1972, 152.4, cm, 05/30/20 11:59:00 EDT, Height, 78, kg, 05/15/20 8:23:00 EDT, Dry Weight Start Date: 10/03/20 Status: Ordered hydrOXYzine hydrochloride 25 mg oral [...] cm, 05/30/20 11:59:00 EDT, Height, 78, kg, 208:23:00 EDT, Dry Weight Start Date: 07/21/20 Status: Ordered levothyroxine 0.025 mg oral tablet 1 tablet = 25 mcg, By Mouth, Daily, # 30 tablet, 6 Refills, Maintenance, 07/23/20 10:45:00 EDT, Tablet, [facility], 152.4, cm, 05/30/20 11:59:00 EDT, Height, 78, kg, 05/15/20 8:23:00 EDT, DryWeight Start Date: 07/23/20 Stop Date: 02/18/21 Status: Ordered LORazepam 0.5 mg oral tablet TAKE 1 TABLET ONLY NEEDED FOR PANIC ATTACK, NO MORE THAN 3 TIMES PER WEEK. Start Date: 01/21/20 Status: Ordered QUEtiapine 50 mg oral tablet TAKE 1-2 TABLETS BY MOUTH AT BEDTIME Start Date: 01/21/20 Status: Ordered Splint Splint, See Instructions, # 1 each, Refills 0, Tot. Refills 0, Maintenance, Splint RUE for Capal tunnel syndrome. G56.01, 01/21/20 14:42:00 EDT, Supply Start Date: 01/21/20 Status: Ordered tamoxifen 20 mg oral tablet [...] FOR SLEEP Start Date: 01/21/20 Status: Ordered Problem List Condition Effective Dates Status Health Status Inform ant Carcinoma of lower outer reinaldo drant of right breast(Confirmed) 1 Active B12 deficiency(Confirmed) Active External hemorrhoids(Confirmed) 2 [...] has cervix. For fibroids 4-repeat in 2 [id number] 5-bone density done at [facility] on 07-24- 6s/p bilateral mastectomy and immediate reconstruction. Vital Signs Most recent to oldest [Reference Range]: 1 Height 152.4 cm (11/07/20 12:02 PM) Weight 78 kg (11/07/20 12:02 PM) Body Mass Index [18.5-24.99] 33.58 *>HHI* (11/07/20 12:02 PM) Temperature [96.8-100.4 DegF] 98.6 DegF (11/07/20 12:02 PM) Social History Social History Type Response Smoking Status Former smoker; Tobac co user in household: No; Type: Cigarettes; Other: quit smoking 12 yrs ago; Tobacco use times per day: 1-2 cigerettes per day; Number of years: 2; entered on: 07/22/15 Sex
--- OUTSIDE RECORDS SUMMARY | 2023-04-27 11:42 | XMS_ITS | Continuity of Care Document ---
Author Name Unknown Organization [facility] Address [address] [place] [address]- Care Team Providers Care Retail Account Manager Name Role Phone Eze BOWEN, Zeinab Primary Care Physician [facility] Date(s): 10/12/22 - 11/11/22 [facility]/[address] [address]- [place] Allergies, Adverse Reactions, Alerts Substance Reaction [...] 5 Refills, Maintenance, 11/10/20 11:56:00 EST, Tablet, [facility]/pharmacy #1972, 152.4, cm, 11/07/20 12:02:00 EST, Height,78, kg, 05/15/20 8:23:00 EDT, Dry Weight Start Date: 11/10/20 Status: Ordered cyanocobalamin 1000 mcg/ml injectable solution 1 mL = 1,000 mcg, Intramuscular, Every 30 days, # 1 mL, 11 Refills, Maintenance, 07/27/22 12:30:00 EDT, Solution, [facility], 152.4, cm, 07/27/22 [...] Gm, 6 Refills, Maintenance, 02/15/22 14:24:00 EDT, [place], [facility], Partial fill [...] oral tablet 1 tablet, By Mouth, Daily, new dose. Repeat labs in 6-8 weeks, # 30 tablet, 2 Refills, Maintenance,10/07/22 8:47:00 EST, [facility], 152.4, cm, 08/20/22 16:02:00 EDT, Height, 83.8,kg, 06/24/22 9:47:00 EDT, Dry Weight Start Date: 10/07/22 Stop Date: 01/05/23 Status: Ordered melatonin 10 mg oral tablet [...] month, # 9 tablet, 1 Refills, Maintenance, 09/21/22 15:57:00 EST, Tablet, [facility], Partial fill upo... Start Date: 09/21/22 Status: Ordered Vitamin D3 1000 intl units [...] has cervix. For fibroids 5-repeat in 2 [id number] 6-bone density done at [facility] on 07-24-19 Social History Social History Type Response Smoking Status Former smoker, quit more than 30 days ago entered on: 07/27/22 Sex Patient Care team information Care Team Personnel Name: Michelle De Leon Position: [facility] Onco RN Member Role: Primary Care Nurse Name: Angela Romero RN Position: S RN Member Role: Primary Care Nurse Name: Anshul Finn RN Position: [facility] RN Member Role: Primary Care Nurse Name: Zeinab Loo MD Position: [facility] Primary Care Physician Member Role: PCP Address: Address: [address] [place] [id number] Name: Tono Mcneal RN Position: [facility] RN Member Role: Primary Care Nurse Care Team Related Persons Name: ALEYDA FREIRE Address: home [address] [place] [address] Name: JODY MOMIN Address: home [address] [place] [address] Name: TERRELL JUAREZ Address: home [address] [address] Name: CARIDAD RUVALCABA Address: home [address] [place] [address]
--- OUTSIDE RECORDS SUMMARY | 2023-04-27 11:42 | XMS_ITS | Continuity of Care Document ---
Author Name Unknown Organization [facility] Address Unknown Care Team Providers Care Special Procedure Technologist Name Role Phone Eze BOWEN, Zeinab Primary Care Physician En[place] [facility] Date(s): 06/29/21 - 07/30/21 [facility] Attending Physician: Zeinab Loo MD Admitting Physician: Zeinab Loo MD Allergies, Adverse Reactions, [...] 11 Refills, Maintenance, 07/09/21 9:16:00 EDT, Solution, [facility], 152.4, cm, 07/03/21 10:11:00 EDT, Height, [...] tablet = 25 mcg, By Mouth, Daily, for 30 days, # 30 tablet, 5 Refills, Hard Stop 09/27/21 13:29:00 EST, 03/31/21 13:29:00 EDT, Tablet, [facility], 152.4, cm, 01/22/21 12:48:00 EDT, Height, 77.2, kg, 01/22/21 12:48:00 EDT, Dry Weight Start Date: 03/31/21 Stop Date: 09/27/21 Status: Ordered levothyroxine 125 mcg (0.125 mg) oral tablet 1 tablet = 125 mcg, By Mouth, Daily, increased due to uncontrolled TSH 07/09/21, # 30 tablet, 0 Refills, Maintenance, 07/09/21 9:16:00 EDT, Tablet, [facility], Partial fill upon patient request if the prescription is for a schedule II opioid . Start Date: 07/09/21 Status: Ordered LORazepam 0.5 mg oral tablet [...] has cervix. For fibroids 4-repeat in 2 [id number] 5-bone density done at [facility] on 07-24-19 6s/p bilateral mastectomy and immediate reconstruction. Social History Social History Type Response Smoking Status Former smoker; Tobac co user in household: No; Type: Cigarettes; Other: quit smoking 12 yrs ago; Tobacco use times per day: 1-2 cigerettes per day; Number of years: 2; entered on: 07/22/15 Sex
--- OUTSIDE RECORDS SUMMARY | 2023-04-27 11:42 | XMS_ITS | Continuity of Care Document ---
Author Name Unknown Organization [facility] Address [address] [place] [address]- Care Team Providers Care Hand Inspector Name Role Phone Eze BOWEN, Zeinab Primary Care Physician [facility] Date(s): 11/18/22 - 12/18/22 [facility] [address] [place], [place] [address] Attending Physician: AdmEssie pringle Admitting Physician: AdmtrEssie Referring Physician: Admtr, Ar8 Allergies, Adverse Reactions, Alerts Substance Reaction Severity [...] 5 Refills, Maintenance, 11/10/20 11:56:00 EST, Tablet, [facility]/pharmacy #1972, 152.4, cm, 11/07/20 12:02:00 EST, Height,78, [...] Gm, 6 Refills, Maintenance, 02/15/22 14:24:00 EDT, [place], [facility], Partial [...] tablet = 112 mcg, By Mouth, Daily, repeat labs in 6-8 weels. NEW LOWER DOSE, # 60 tablet, 0 Refills, Maintenance, 12/10/22 19:40:00 EST, Tablet, [facility], Partial fill upon patient request if the prescription is for a schedule II opi... Start Date: 12/10/22 Stop Date: 02/08/23 Status: Ordered melatonin 10 mg oral tablet [...] Iron deficiency anemia Confirmed Active Obese class I Confirmed Active Osteopenia 5, 6 Confirmed Active [...] has cervix. For fibroids 5-repeat in 2 [id number] 6-bone density done at [facility] on 07-24-19 Social History Social History Type [...] Care Physician Member Role: PCP Address: Address: [address] [place] [id number]- Name: Tono Mcneal RN Position: [facility] RN Member Role: Primary Care Nurse Care Team Related Persons Name: ALEYDA FREIRE Address: home [address] [place] [address] Name: JODY MOMIN Address: home [address] [place] [address] Name: TERRELL JUAREZ Address: home [address] [address] Name: CARIDAD RUVALCABA Address: home [address] [place] [address]
--- OUTSIDE RECORDS SUMMARY | 2023-04-27 11:42 | XMS_ITS | Continuity of Care Document ---
Author Name Unknown Organization [facility] Address Unknown Care Team Providers Care Leak Detection Engineer Name Role Phone Eze BOWEN, Zeinab Primary Care Physician Encounter [facility] Date(s): 03/11/22 - 04/10/22 [facility] Allergies, Adverse Reactions, Alerts Substance Reaction [...] Maintenance, ... Start Date: 12/21/21 Status: Ordered escitalopram 20 mg oral tablet TAKE 1 TABLET DAILY (WITH 10MG TABLET) FOR DEPRESSION/ANXIETY. Start Date: 02/15/22 Status: Ordered Flonase 50 mcg/inh nasal spray 1 sprays, Nares, Both, 2 times a day, # 16 Gm, 6 Refills, Maintenance, 02/15/22 14:24:00 EDT, [place], [facility], Partial fill upon patient request if the prescription is for a schedule II opioid drug., 1 sprays Nares, Both 2 times a day,... Start Date: 02/15/22 Status: Ordered hydrOXYzine hydrochloride 25 mg oral [...] Date: 03/16/22 Stop Date: 07/14/22 Status: Ordered LORazepam 0.5 mg oral tablet TAKE 1 TABLET ONLY NEEDED FOR PANIC ATTACK, NO MORE THAN 3 TIMES PER WEEK. Start Date: 01/21/20 Status: Ordered multivitamin Multiple Vitamins oral tablet 1 tablet, By Mouth, Daily, # 30 tablet, 2 Refills, Maintenance, 03/16/22 9:08:00 EDT, Tablet, [facility], Partial fill upon patient request if the prescription is for a schedule II opioid drug., 1 tablet By Mouth Daily, 152.4, cm, ... Start Date: 03/16/22 Status: Ordered SUMAtriptan 25 mg oral tablet 1 tablet = 25 mg, By Mouth, Daily, PRN for migraine headache, may repeat dose after 2 hours up to amaximum of 2. Max of 9 tablets per month, # 9 tablet, 0 Refills, Maintenance, 03/11/22 17:50:00 EDT, Tablet, [facility], Partial fill upo... Start Date: 03/11/22 Status: Ordered traZODone 100 mg oral tablet patient is taking half a tablet of 100 mg at HS=50 mg Start Date: 01/21/20 Status: Ordered Problem List [...] has cervix. For fibroids 4-repeat in 2 [id number] 5-bone density done at [facility] on 07-24-19 6s/p bilateral mastectomy and immediate reconstruction. Social History Social History Type Response Smoking Status Former smoker, quit more than 30 days ago entered on: 09/22/21 Sex
--- OUTSIDE RECORDS SUMMARY | 2023-04-27 11:42 | XMS_ITS | Continuity of Care Document ---
Author Name Unknown Organization [facility] sandra Address [address] [place] [address] [address] [place] [address]- Care Team Providers Care Infrastructure Solutions Architect Name Role Phone Eze BOWEN, Zeinab Primary Care Physician [facility] Date(s): 12/05/20 - 12/12/20 [facility] [address] [place] [address]- Attending Physician: Vinayak Persaud MD Referring Physician: [...] Dry Weight Start Date: 11/10/20 Status: Ordered Calcium 600 +D oral tablet 1 tablet, By Mouth, 2 times a day, calcium 600, Vit D 400 units, # 60 tablet, 6 Refills, Maintenance, 01/21/20 14:42:00 EDT, [facility], 1 tablet By Mouth 2 times a day,x30 days,Instr:[id number], Vit D 400 units, 152.4, cm, 12/05/19 15:12:00... Start Date: 01/21/20 Stop Date: 08/18/20 Status: Ordered citalopram 40 mg oral tablet TAKE 1 TABLET BY MOUTH EVERYDAY AT BEDTIME Start Date: 01/21/20 Status: Ordered cyanocobalamin 1000 mcg/ml injectable solution 1 mL = 1,000 mcg, Intramuscular, Every 30 days, # 12 mL, 1 Refills, Maintenance, 10/03/20 11:27:00 EST, [facility], [facility], 152.4, cm, 05/30/20 11:59:00 EDT, [...] PER WEEK. Start Date: 01/21/20 Status: Ordered Splint Splint, See Instructions, # 1 each, Refills 0, Tot. Refills 0, Maintenance, Splint RUE for Capal tunnel syndrome. G56.01, 01/21/20 14:42:00 EDT, Supply Start Date: 01/21/20 Status: Ordered tamoxifen 20 mg oral tablet 1 tablet = 20 mg, By Mouth, Daily, # 90 tablet, 3 Refills, Maintenance, 03/31/20 15:44:00 EDT, [facility]/pharmacy #1972, 152.4, cm, 03/05/20 8:02:00 EDT, Height, [...] has cervix. For fibroids 4-repeat in 2 [id number] 5-bone density done at [facility] on 07-24-19 6s/p bilateral mastectomy and immediate reconstruction. Vital Signs Most recent to oldest [Reference Range]: 1 Height 152.4 cm (12/05/20 11:43 AM) Weight 76 kg (12/05/20 11:43 AM) Body Mass Index [18.5-24.99] 32.72 *>HHI* (12/05/20 11:43 AM) Temperature [96.8-100.4 DegF] 98.2 DegF (12/05/20 11:43 AM) Social History Social History Type Response Smoking Status Former smoker; Tobac co user in household: No; Type: Cigarettes; Other: quit smoking 12 yrs ago; Tobacco use times per day: 1-2 cigerettes per day; Number of years: 2; entered on: 07/22/15 Sex
--- OUTSIDE RECORDS SUMMARY | 2023-04-27 11:42 | XMS_ITS | Continuity of Care Document ---
Author Name Unknown Organization [facility] sandra Address [address] [place] [address] [address] [place] [address]- Care Team Providers Care Clasp Machine Operator Name Role Phone Eze BOWEN, Zeinab Primary Care Physician [facility] Date(s): 07/19/22 - 07/26/22 [facility] [address] [place] [address]- Attending Physician: Not on Staff, Attending MD Allergies, Adverse Reactions, Alerts Substance Reaction [...] 5 Refills, Maintenance, 11/10/20 11:56:00 EST, Tablet, [facility]/pharmacy #1972, 152.4, cm, 11/07/20 12:02:00 EST, Height,78, kg, 05/15/20 8:23:00 EDT, Dry Weight Start Date: 11/10/20 Status: Ordered cyanocobalamin 1000 mcg/ml injectable solution 1 mL = 1,000 mcg, Intramuscular, Every 30 days, # 1 mL, 11 Refills, Maintenance, 07/09/21 9:16:00 EDT, Solution, [facility]/pharmacy #1972, 152.4, cm, 07/03/21 10:11:00 EDT, [...] Psych, # 30 tablet, 3 Refills, Maintenance, 06/03/22 11:54:00 EDT, Tablet, [facility], Partial fill upon patient request if the prescriptio... Start Date: 06/03/22 Stop Date: 10/01/22 Status: Ordered escitalopram 20 mg oral tablet 1 tablet = 20 mg, By Mouth, Daily, to take along 10 mg for a total of 30 mg per day. covering for psych, # 30 tablet, 3 Refills, Maintenance, 06/03/22 11:54:00 EDT, [facility], Partial fill upon patient request if the prescription is for... Start Date: 06/03/22 Stop Date: 10/01/22 Status: Ordered Flonase 50 mcg/inh nasal spray 1 sprays, Nares, Both, 2 times a day, # 16 Gm, 6 Refills, Maintenance, 02/15/22 14:24:00 EDT, [place], [facility], Partial fill [...] 0 Refills, Maintenance, 04/22/22 14:42:00 EDT, Tablet, [facility], [...] 11 Refills, Maintenance, 04/22/22 14:34:00 EDT, Tablet, [facility]/pharmacy #1972, Partial fill upon patient request if the prescription is for a schedule II opioid drug., 1 tablet By Mouth Daily, 152.4, cm, 04/22/22 1... Start Date: 04/22/22 Status: Ordered oxyCODONE 5 mg oral tablet 5 mg, 1, tablet, By Mouth, Every 6 hours, PRN, # 20 tablet, Refills 0, Tot. Refills 0, Maintenance,for pain, 06/22/22 14:00:00 EDT, Route to Pharmacy Electronically, [facility], Partial fill upon patient request if the prescription i... Start Date: 06/22/22 Status: Ordered SUMAtriptan 25 mg oral tablet 1 tablet = 25 mg, By Mouth, Daily, PRN for migraine headache, may repeat dose after 2 hours up to amaximum of 2. Max of 9 tablets per month, # 9 tablet, 1 Refills, Maintenance, 04/22/22 14:53:00 EDT, Tablet, [facility], Partial fill upo... Start Date: 04/22/22 Status: Ordered Voltaren Arthritis Pain 1% topical gel = 2 Gm, Topically, 4 times a day, 0 Refills, Maintenance, 06/18/22 16:01:00 EDT, Partial fill upon patient request if the prescription is for a schedule II opioid drug. Start Date: 06/18/22 Status: Ordered Problem List Condition Confirmation Course Effective Dates Status H ealth Status Informant Carcinoma of lower outer quadrant of right breast 1 Confirmed Active Chronic depression Confirmed Active B12 deficiency Confirmed Active External hemorrhoids 2 Confirmed Active H/O abdominal hysterectomy 3 Confirmed Active Hypothyroidism Confirmed Active Iron deficiency anemia Confirmed Active Obese class II Confirmed Active Osteopenia 4, 5 Confirmed Active Bilateral breast cancer 6 Confirmed Active 1Status post bilateral mastectomy with implant reconstruction for stage I right breast cancer diagnosed in 2014 Status post prior breast-conserving surgery on the right followed by radiation therapy and AC to Taxol for hormone receptor negative, 2-Colonoscopy December 2018. Repeat in 10 years 3-and bilateral oophorectomy. Still has cervix. For fibroids 4-repeat in 2 [id number] 5-bone density done at [facility] on 07-24- 6s/p bilateral mastectomy and immediate reconstruction. Vital Signs Most recent to oldest [Reference Range]: 1 Height 152.4 cm (07/19/22 10:43 AM) Weight 83 kg (07/19/22 10:43 AM) Body Mass Index [18.5-24.99 kg/m2] 35.74 kg/m2 *>HHI* (07/19/22 10:43 AM) Temperature [96.8-100.4 DegF] 98.6 DegF (07/19/22 10:43 AM) Temperature Route Temporal (07/19/22 10:43 AM) Weight Obtained Via Standing scale (07/19/22 10:43 AM) Social History Social History Type Response Smoking Status Former smoker, quit more than 30 days ago entered on: 09/22/21 Sex Patient Care team information Personnel Name: Zeinab Loo MD Address: Address: [address] [place] [id number]- [place]
--- OUTSIDE RECORDS SUMMARY | 2023-04-27 11:42 | XMS_ITS | Continuity of Care Document ---
Author Name Unknown Organization [facility] Address [address] [place] [address]- Care Team Providers Care Glue Cook Name Role Phone Eze BOWEN, Zeinab Primary Care Physician Encounter [facility] Date(s): 10/27/22 - 11/26/22 [facility]/[address] [address]- [place] Allergies, Adverse Reactions, Alerts Substance Reaction [...] 5 Refills, Maintenance, 11/10/20 11:56:00 EST, Tablet, [facility]/pharmacy #1972, 152.4, cm, 11/07/20 12:02:00 EST, Height,78, [...] Maintenance, 04/22/22 14:54:00 EDT, [place], [facility], Partial fill upon patient request [...] EDT, Route to Pharmacy Electronically, [facility]... Start Date: 08/09/22 Status: Ordered Flonase 50 mcg/inh nasal spray 1 sprays, Nares, Both, 2 times a day, # 16 Gm, 6 Refills, Maintenance, 05/02/22 14:24:00 EDT, [place], [facility], Partial fill [...] 1 cc 31 G x 8 mm (16in) See Instructions, # 12 each, Refills 1, [...] has cervix. For fibroids 5-repeat in 2 [id number] 6-bone density done at [facility] on 07-24-19 Social History Social History Type Response Smoking Status Former smoker, quit more than 30 days ago entered on: 07/27/22 Sex Patient Care team information Care Team Personnel Name: Michelle De Leon Position: [facility] Onco RN Member Role: Primary Care Nurse Name: Angela Romero RN Position: [facility] RN Member Role: Primary Care Nurse Name: Anshul Finn RN Position: [facility] RN Member Role: Primary Care Nurse Name: Zeinab Loo MD Position: [facility] Primary Care Physician Member Role: PCP Address: Address: [address] [place] [address]- Name: Tono Mcneal RN Position: [facility] RN Member Role: Primary Care Nurse Care Team Related Persons Name: ALEYDA FREIRE Address: home [address] [place] [address] Name: JODY MOMIN Address: home [address] [facility] [address] [place] [address] Name: TERRELL JUAREZ Address: home [address] [address] Name: CARIDAD RUVALCABA Address: home [address] [place] [address]
--- OUTSIDE RECORDS SUMMARY | 2023-04-27 11:42 | XMS_ITS | Continuity of Care Document ---
Author Name Unknown Organization [facility] Address [address] [place] [address]- Care Team Providers Care Outside Production Inspector Name Role Phone Eze BOWEN, Bartelso Primary Care Physician [place] [facility] [place] - 02/04/22 [facility] [address] [place] [address] Attending Physician: Admtr, Paul8 Admitting Physician: Admtr, Paul8 Referring Physician: Admtr, Ar8 Allergies, Adverse Reactions, [...] Refills, Maintenance, 11/10/20 11:56:00 EST, Tablet, [facility]/pharmacy #1972, 152.4, cm, 11/07/20 12:02:00 EST, Height,78, kg, 05/15/20 8:23:00 EDT, Dry Weight Start Date: 11/10/20 Status: Ordered cyanocobalamin 1000 mcg/ml injectable solution 1 mL = 1,000 mcg, Intramuscular, Every 30 days, # 1 mL, 11 Refills, Maintenance, 07/09/21 9:16:00 EDT, Solution, [facility]/pharmacy #1972, 152.4, cm, 07/03/21 10:11:00 [...] Maintenance, ... Start Date: 12/21/21 Status: Ordered hydrOXYzine hydrochloride 25 mg oral [...] tablet, By Mouth, Daily, # 30 tablet, 6 Refills, Maintenance, 11/24/21 13:36:00 EST, [facility], 152.4, cm, 11/17/21 10:45:00 EST, Height, 77.2, kg, 01/22/21 12:48:00 EDT, Dry Weight Start Date: 11/24/21 Stop Date: 06/22/22 Status: Ordered LORazepam 0.5 mg oral tablet [...] 07/03/21 10... Start Date: 07/09/21 Status: Ordered tamoxifen 20 mg oral tablet 1 tablet, By Mouth, Daily, # 90 tablet, 3 Refills, [facility], 152.4, cm, 09/22/21 9:03:00 EST, Height, 77.2, kg, 01/22/21 12:48:00 EDT, Dry Weight Start Date: 10/26/21 Status: Ordered traZODone 100 mg oral tablet patient is taking half a tablet of 100 mg at HS=50 mg Start Date: 01/21/20 Status: Ordered triamcinolone 0.1% [...] has cervix. For fibroids 4-repeat in 2 [id number] 5-bone density done at [facility] on 07-24- 6s/p bilateral mastectomy and immediate reconstruction. Social History Social History Type Response Smoking Status Former smoker, quit more than 30 days ago entered on: 09/22/21 Sex
--- OUTSIDE RECORDS SUMMARY | 2023-04-27 11:42 | XMS_ITS | Continuity of Care Document ---
Author Name Unknown Organization [facility] Address [address] [place] [address] [address] [place] [address]- Care Team Providers Care Digital Retoucher Name Role Phone Eze BOWEN, Zeinab Primary Care Physician [facility] Date(s): 07/16/22 - 07/23/22 [facility] [address] [place] [address]- Attending Physician: Vinayak Persaud MD Allergies, Adverse Reactions, Alerts Substance Reaction Severity Status NSAIDs Ulcer Active Betadine hives Active penicillin HIVES Active Immunizations Given and [...] Refills, Maintenance, 11/10/20 11:56:00 EST, Tablet, [facility]/pharmacy #1972, 152.4, cm, 11/07/20 12:02:00 EST, Height,78, kg, 05/15/20 8:23:00 EDT, Dry Weight Start Date: 11/10/20 Status: Ordered cyanocobalamin 1000 mcg/ml injectable solution 1 mL = 1,000 mcg, Intramuscular, Every 30 days, # 1 mL, 11 Refills, Maintenance, 07/09/21 9:16:00 EDT, Solution, [facility]/pharmacy #1972, 152.4, cm, 07/03/21 10:11:00 EDT, Height, [...] Gm, 6 Refills, Maintenance, 02/15/22 14:24:00 EDT, [place], [facility], Partial fill [...] 11 Refills, Maintenance, 04/22/22 14:34:00 EDT, Tablet, [facility]/pharmacy #1972, Partial fill upon patient request if the prescription is for a schedule II opioid drug., 1 tablet By Mouth Daily, 152.4, cm, 04/22/22 1... Start Date: 04/22/22 Status: Ordered oxyCODONE 5 mg oral tablet 5 mg, 1, tablet, By Mouth, Every 6 hours, PRN, # 20 tablet, Refills 0, Tot. Refills 0, Maintenance,for pain, 06/22/22 14:00:00 EDT, Route to Pharmacy Electronically, [facility], Partial fill upon patient [...] has cervix. For fibroids 4-repeat in 2 [id number] 5-bone density done at [facility] on 07-24- 6s/p bilateral mastectomy and immediate reconstruction. Vital Signs Most recent to oldest [Reference Range]: 1 Height 152.4 cm (07/16/22 10:32 AM) Weight 83 kg (07/16/22 10:32 AM) Body Mass Index [18.5-24.99 kg/m2] 35.74 kg/m2 *>HHI* (07/16/22 10:32 AM) Social History Social History Type Response Smoking Status Former smoker, quit more than 30 days ago entered on: 09/22/21 Sex Patient Care team information Personnel Name: Zeinab Loo MD Address: Address: [address] [place] [address]
--- OUTSIDE RECORDS SUMMARY | 2023-04-27 11:42 | XMS_ITS | Continuity of Care Document ---
Author Name Unknown Organization [facility] sandra Address [address] [place] [address] [address] [place] [address]- Care Team Providers Care Electric Meter Reader Name Role Phone Eze BOWEN, Zeinab Primary Care Physician [facility]counter [facility] Date(s): 12/05/20 - 01/04/21 [facility] [address] [place], [place] [address] Attending Physician: AdmEssie pringle Admitting Physician: [...] tablet By Mouth 2 times a day,x30 days,Instr:[id number], Vit D 400 units, 152.4, cm, 12/05/19 [...] tablet, 3 Refills, Maintenance, 03/31/20 15:44:00 EDT, [facility]/pharmacy #1972, 152.4, cm, 03/05/20 8:02:00 EDT, Height, [...] has cervix. For fibroids 4-repeat in 2 [id number] 5-bone density done at [facility] on 07-24-19 6s/p bilateral mastectomy and immediate reconstruction. Social History Social History Type Response Smoking Status Former smoker; Tobac co user in household: No; Type: Cigarettes; Other: quit smoking 12 yrs ago; Tobacco use times per day: 1-2 cigerettes per day; Number of years: 2; entered on: 07/22/15 Sex
--- OUTSIDE RECORDS SUMMARY | 2023-04-27 11:42 | XMS_ITS | Continuity of Care Document ---
Author Name Unknown Organization [facility] sandra Address [address] [place] [address] [address] [place] [address]- Care Team Providers Care Pattern Changer And Repairer Name Role Phone Eze BOWEN, Zeinab Primary Care Physician Encounter [facility] Date(s): 06/30/20 - 07/30/20 [facility] [address] [place] [address]- [facility] Attending Physician: Admtr, Essie Admitting Physician: AdmtrEssie Referring Physician: Admtr, Ar8 Allergies, Adverse Reactions, Alerts Substance Reaction Severity Status NSAIDs Ulcer Active penicillin HIVES Active Betadine Active Immunizations Given and Recorded Vaccine Date Status Refusal Reason hepatitis B adult vaccine 08/21/19 Recorded hepatitis B adult vaccine 11/17/18 Given hepatitis B adult vaccine 10/20/18 Given Hepatitis A Adult Vaccine 08/21/19 Recorded Hepatitis A Adult Vaccine 10/20/18 Given influenza virus vaccine, inactivated 10/20/18 Give n influenza virus vaccine, inactivated 1 08/05/10 Gi santosh influenza virus vaccine, inactivated 2 09/17/09 Gi santosh influenza virus vaccine, live 3 09/17/09 Given 1Admin Note: VIS07/18/09 gIVEN 2Admin Note: flu vaccine sanofi-pasteur VIS 03/2009 INNER 3Admin Note: SANOFI-PASTEUR VIS 04/15/2009 OUTER Medications albuterol CFC free 90 mcg/inh inhalation aerosol 2, puffs, Inhalation, 4 times a day, PRN, # 18 Gm, Refills 3, Tot. Refills 3, Maintenance, 10/20/1912:28:52 EST, Aerosol, Route to Pharmacy Electronically, [id number], [facility]/pharmacy #1972, Compound Start Date: 10/20/18 Status: Ordered Calcium 600 +D oral tablet 1 tablet, By Mouth, 2 times a day, calcium 600, Vit D 400 units, # 60 tablet, 6 Refills, Maintenance, 01/21/20 14:42:00 EDT, [facility]/pharmacy #1972, 1 tablet By Mouth 2 times a day,x30 days,Instr:[id number], Vit D 400 units, 152.4, cm, 12/05/19 15:12:00... Start Date: 01/21/20 Stop Date: 08/18/20 Status: Ordered citalopram 40 mg oral tablet TAKE 1 TABLET BY MOUTH EVERYDAY AT BEDTIME Start Date: 01/21/20 Status: Ordered cyanocobalamin 1000 mcg/ml injectable solution 1 mL = 1,000 mcg, Intramuscular, Every 30 days, # 10 mL, 6 Refills, Maintenance, 08/21/19 17:05:24 EST, Solution Start Date: 08/21/19 Status: Ordered hydrOXYzine hydrochloride 25 mg oral [...] 6 Refills, Maintenance, 07/23/20 10:45:00 EDT, Tablet, [facility]/pharmacy #1972, 152.4, cm, 05/30/20 11:59:00 [...] has cervix. For fibroids 4-repeat in 2 [id number] 5-bone density done at [facility] on 07-24-19 6s/p bilateral mastectomy and immediate reconstruction. Social History Social History Type Response Smoking Status Former smoker; Tobac co user in household: No; Type: Cigarettes; Other: quit smoking 12 yrs ago; Tobacco use times per day: 1-2 cigerettes per day; Number of years: 2; entered on: 07/22/15 Sex
--- OUTSIDE RECORDS SUMMARY | 2023-04-27 11:43 | XMS_ITS | Continuity of Care Document ---
Author Name Unknown Organization [facility] Address [address] [place] [address]- Care Team Providers Care Maple Syrup Maker Name Role Phone Eze BOWEN, Zeinab Primary Care Physician Encounter [facility] Date(s): 02/24/23 - 03/26/23 [facility]/[address] [address]- [place] Allergies, Adverse Reactions, Alerts Substance Reaction [...] Refills, Maintenance, 11/10/20 11:56:00 EST, Tablet, [facility]/pharmacy #1972, 152.4, cm, 11/07/20 12:02:00 EST, Height,78, kg, 05/15/20 8:23:00 EDT, Dry Weight Start Date: 11/10/20 Status: Ordered clotrimazole 1% topical cream 1 application, Topically, 2 times a day, apply thin later to affected area twice a day., # 30 Gm, 0Refills, Maintenance, 03/15/23 11:39:00 EDT, Cream, [facility], Partial fill uponpatient request if [...] 0 Refills, Maintenance, 04/22/22 14:54:00 EDT, Gel, [facility], Partial fill upon [...] Gm, 6 Refills, Maintenance, 02/15/22 14:24:00 EDT, [place], [facility], Partial fill [...] 5-osteopenia femoral neck 2022 6-repeat in 2 [id number] 7-bone density done at [facility] on 07-24-19 Social History Social History Type Response Smoking Status Former smoker, quit more than 30 days ago entered on: 07/27/22 Sex Patient Care team information Care Team Personnel Name: Michelle De Leon Position: [facility] Onco RN Member Role: Primary Care Nurse Name: Angela Romero RN Position: S RN Member Role: Primary Care Nurse Name: Anshul Finn RN Position: [facility] RN Member Role: Primary Care Nurse Name: Zeinab Loo MD Position: [facility] Physician - Primary Care Member Role: PCP Address: Address: [address] [place] [address]- Name: Tono Mcneal RN Position: [facility] RN Member Role: Primary Care Nurse Care Team Related Persons Name: ALEYDA FREIRE Address: home [address] [place] [address] Name: JODY MOMIN Address: home [address] [place] [address] Name: TERRELL JUAREZ Address: home [address] [address] Name: CARIDAD RUVALCABA Address: home [address] [place] [address]
--- OUTSIDE RECORDS SUMMARY | 2023-04-27 11:43 | XMS_ITS | Continuity of Care Document ---
Author Name Unknown Organization [facility] Address [address] [place] [address]- Care Team Providers Care Grinder Set Up Operator Centerless Name Role Phone Zeinab Loo MD Primary Care Physician Encounter [facility] Date(s): 01/21/20 - 01/28/20 [facility] [address] [address]- [facility] Attending Physician: Zeinab Loo MD Admitting Physician: Zeinab Loo MD Allergies, Adverse Reactions, Alerts Substance Reaction Severity Status penicillin HIVES Active Betadine Active NSAIDs Ulcer Active Immunizations Given and [...] 3Admin Note: SANOFI-PASTEUR VIS 04/15/2009 OUTER Medications acetaminophen 500 mg oral tablet 2 tablet = 1,000 mg, By Mouth, 3 times a day, PRN as needed for pain, # 50 tablet, 1 Refills, Maintenance, 08/21/19 17:14:34 EST, Tablet Start Date: 08/21/19 Status: Ordered albuterol CFC free 90 mcg/inh inhalation aerosol 2, puffs, Inhalation, 4 times a day, PRN, # 18 Gm, Refills 3, Tot. Refills 3, Maintenance, 10/20/1912:28:52 EST, Aerosol, Route to Pharmacy Electronically, [id number], [facility]/pharmacy #1972, Compound Start Date: 10/20/18 Status: Ordered Calcium 600 +D oral tablet 1 tablet, By Mouth, 2 times a day, calcium 600, Vit D 400 units, # 60 tablet, 6 Refills, Maintenance, 01/21/20 14:42:00 EDT, [facility]/pharmacy #1972, 1 tablet By Mouth 2 times a day,x30 days,Instr:[id number], Vit D 400 units, 152.4, cm, 12/05/19 [...] x 8 mm (5/16in) See Instructions, # 10 units, Maintenance, dx: to use with B12 injections monthly, 03/05/19 15:25:54 EDT, Compound Start Date: 03/05/19 Status: Ordered levothyroxine 0.025 mg oral tablet 1 tablet = 25 mcg, By Mouth, Daily, # 30 tablet, 6 Refills, Maintenance, 08/21/19 17:06:41 EST, Tablet Start Date: 08/21/19 Stop Date: 03/18/20 Status: Ordered LORazepam 0.5 mg oral tablet [...] Daily, # 90 tablet, 3 Refills, Maintenance, 01/31/19 11:33:57 EDT Start Date: 01/31/19 Stop Date: 01/26/20 Status: Ordered traZODone 100 mg oral tablet TAKE 1 TO 2 TABLETS BY MOUTH EVERY DAY AT BEDTIME NEEDED FOR SLEEP Start Date: 01/21/20 Status: Ordered Problem List Condition Effective Dates Status Health Status Inform ant Carcinoma of lower outer reinaldo drant of right breast(Confirmed) Active B12 deficiency(Confirmed) Active External hemorrhoids(Confirmed) 1 Active H/O abdominal hysterectomy(C onfirmed) 2 Active Hypothyroidism(Confirmed) Active Iron deficiency anemia(Confirmed) Active Osteopenia(Confirmed) 3, 4 Active Bilateral breast cancer(Confirmed) 5 Active 1-Colonoscopy December 2018. Repeat in 10 years 2-and bilateral oophorectomy. Still has cervix. For fibroids 3-repeat in 2 [id number] 4-bone density done at [facility] on 07-24-19 5s/p bilateral mastectomy and immediate reconstruction. Social History Social History Type Response Smoking Status Former smoker; Tobac co user in household: No; Type: Cigarettes; Other: quit smoking 12 yrs ago; Tobacco use times per day: 1-2 cigerettes per day; Number of years: 2; entered on: 07/22/15 Sex
--- OUTSIDE RECORDS SUMMARY | 2023-04-27 11:43 | XMS_ITS | Continuity of Care Document ---
Author Name Unknown Organization [facility] Address Unknown Care Team Providers Care Data Entry Email Processor Name Role Phone Eze BOWEN, Zeinab Primary Care Physician ( [phone] Encounter [facility] Date(s): 09/17/21 - 10/17/21 [facility] Allergies, Adverse Reactions, Alerts Substance [...] 11 Refills, Maintenance, 07/09/21 9:16:00 EDT, Solution, [facility]/pharmacy #1972, 152.4, cm, 07/03/21 10:11:00 [...] tablet, 0 Refills, Maintenance,09/17/21 9:26:00 EST, Tablet, [facility]/pharmacy #1972, she lost her bottle. [...] 11 Refills, Maintenance, 07/09/21 9:17:00 EDT, Tablet, [facility]/pharmacy #1972, Partial fill upon patient [...] has cervix. For fibroids 4-repeat in 2 [id number] 5-bone density done at [facility] on 07-24-19 6s/p bilateral mastectomy and immediate reconstruction. Social History Social History Type Response Smoking Status Former smoker, quit more than 30 days ago entered on: 09/22/21 Sex
--- OUTSIDE RECORDS SUMMARY | 2023-04-27 11:43 | XMS_ITS | Continuity of Care Document ---
Author Name Unknown Organization [facility] [place] sandra Address [address] [place] [address] [address] [place] [address]- Care Team Providers Care History Professor Name Role Phone Zeinab Loo MD Primary Care Physician Encounter [facility] Date(s): 05/30/20 - 06/06/20 [facility] [address] [place] [address]- [facility] Attending Physician: Vinayak Persaud MD Referring Physician: Zeinab Loo MD Allergies, Adverse Reactions, Alerts Substance Reaction Severity Status penicillin HIVES Active NSAIDs Ulcer Active Betadine Active Immunizations Given and Recorded [...] 10/20/1912:28:52 EST, Aerosol, Route to Pharmacy Electronically, [id number], [facility]pharmacy [facility]1972, Compound Start Date: 10/20/18 Status: Ordered Calcium 600 +D oral tablet 1 tablet, By Mouth, 2 times a day, calcium 600, Vit D 400 units, # 60 tablet, 6 Refills, Maintenance, 01/21/20 14:42:00 EDT, [facility]/pharmacy #1972, 1 tablet By Mouth 2 times a day,x30 days,Instr:[id number], Vit D 400 units, 152.4, cm, 12/05/19 [...] mcg, By Mouth, Daily, # 30 tablet, 2 Refills, Maintenance, 05/20/20 12:43:00 EDT, Tablet, [facility]/pharmacy #1972, 152.4, cm, 05/15/20 8:23:00 EDT, Height, 78, kg, 05/15/20 8:23:00 EDT, Dry Weight Start Date: 05/20/20 Stop Date: 08/18/20 Status: Ordered LORazepam 0.5 mg oral tablet TAKE 1 TABLET ONLY NEEDED FOR PANIC ATTACK, NO MORE THAN 3 TIMES PER WEEK. Start Date: 01/21/20 Status: Ordered oxyCODONE 5 mg oral tablet 5 mg, 1, tablet, By Mouth, Every 6 hours, PRN, # 20 tablet, Refills 0, Tot. Refills 0, Maintenance,for pain, 05/14/20 15:01:00 EDT, Route to Pharmacy Electronically, [facility], Partial fill upon patient request, 152.4, cm, 03/05/20... Start Date: 05/14/20 Status: Ordered QUEtiapine 50 mg oral tablet [...] tablet, 3 Refills, Maintenance, 03/31/20 15:44:00 EDT, [facility]/pharmacy #1972, 152.4, cm, 03/05/20 8:02:00 EDT, Height, [...] has cervix. For fibroids 3-repeat in 2 [id number] 4-bone density done at [facility] on 07-24-19 5s/p bilateral mastectomy and immediate reconstruction. Vital Signs Most recent to oldest [Reference Range]: 1 Height 152.4 cm (05/30/20 11:59 AM) Weight 74.09 kg (05/30/20 11:59 AM) Body Mass Index [18.5-24.99] 31.9 *>HHI* (05/30/20 11:59 AM) Temperature [96.8-100.4 DegF] 96.4 DegF *L* (05/30/20 11:59 AM) Temperature Route Temporal (05/30/20 11:59 AM) Social History Social History Type Response Smoking Status Former smoker; Tobac co user in household: No; Type: Cigarettes; Other: quit smoking 12 yrs ago; Tobacco use times per day: 1-2 cigerettes per day; Number of years: 2; entered on: 07/22/15 Sex
--- OUTSIDE RECORDS SUMMARY | 2023-04-27 11:43 | XMS_ITS | Continuity of Care Document ---
Author Name Unknown Organization [facility] Address Unknown Care Team Providers Care Muffle Operator Name Role Phone Eze BOWEN, Zeinab Primary Care Physician Encounter [facility] Date(s): 12/21/21 - 01/20/22 [facility] Attending Physician: Essie Villareal Admitting Physician: Essie Villareal Referring Physician: Essie Villareal Allergies, Adverse Reactions, Alerts Substance Reaction Severity [...] pain, # 50 tablet, 5 Refills, Maintenance, 01/25/21 11:56:00 EST, Tablet, [facility]/pharmacy #1972, 152.4, cm, 11/07/20 12:02:00 EST, Height,78, kg, 05/15/20 8:23:00 EDT, Dry Weight Start Date: 11/10/20 Status: Ordered cyanocobalamin 1000 mcg/ml injectable solution 1 mL = 1,000 mcg, Intramuscular, Every 30 days, # 1 mL, 11 Refills, Maintenance, 07/09/21 9:16:00 EDT, Solution, [facility]/pharmacy #1972, 152.4, cm, 07/03/21 10:11:00 [...] # 90 tablet, 3 Refills, [id number], 152.4, cm, 09/22/21 9:03:00 EST, Height, 77.2, [...] has cervix. For fibroids 4-repeat in 2 [id number] 5-bone density done at [facility] on 07-24-19 6s/p bilateral mastectomy and immediate reconstruction. Social History Social History Type Response Smoking Status Former smoker, quit more than 30 days ago entered on: 09/22/21 Sex
--- OUTSIDE RECORDS SUMMARY | 2023-04-27 11:43 | XMS_ITS | Continuity of Care Document ---
Author Name Unknown Organization [facility] Address [address] [place] [address]- Care Team Providers Care Moss Bleacher Name Role Phone Eze BOWEN, Zeinab Primary Care Physician Encounter [facility] Date(s): 12/29/22 - 01/28/23 [facility] [address] [place], [place] [address] Attending Physician: Essie Villareal Admitting Physician: AdmtrEssie Referring Physician: AdmtrEssie Allergies, Adverse Reactions, Alerts [...] 03/2009 INNER 3Result Comment: Pharmacy 4Admin Note: SANOFI-ASAD VIS 04/15/2009 OUTER Medications acetaminophen 500 mg [...] Gm, 6 Refills, Maintenance, 02/15/22 14:24:00 EDT, [place], [facility], Partial fill [...] Obese class I Confirmed Active Osteopenia 5, 6, 7 Confirmed [...] 5-osteopenia femoral neck 2022 6-repeat in 2 [id number] 7-bone density done at [facility] on 07-24-19 Social History Social History Type Response Smoking Status Former smoker, quit more than 30 days ago entered on: 07/27/22 Sex Patient Care team information Care Team Personnel Name: Michelle De Leon Position: [facility] Onco RN Member Role: Primary Care Nurse Name: Angela Romero RN Position: S RN Member Role: Primary Care Nurse Name: Anshul Finn RN Position: S RN Member Role: Primary Care Nurse Name: Zeinab Loo MD Position: [facility] Primary Care Physician Member Role: PCP Address: Address: [address] [place] [address]- Name: Tono Mcneal RN Position: [facility] RN Member Role: Primary Care Nurse Care Team Related Persons Name: ALEYDA FREIRE Address: home [address] [place] [address] Name: JODY MOMIN Address: home [address] [place] Name: TERRELL JUAREZ Address: home [address] [address] Name: CARIDAD RUVALCABA Address: home [address] [place] [address]
--- OUTSIDE RECORDS SUMMARY | 2023-04-27 11:43 | XMS_ITS | Continuity of Care Document ---
Author Name Unknown Organization [facility] Address Unknown Care Team Providers Care Supervising Film Or Videotape Editor Name Role Phone Eze BOWEN, Zeinab Primary Care Physician ( [phone] Encounter [facility] Date(s): 02/10/22 - 03/12/22 [facility] Allergies, Adverse Reactions, Alerts Substance Reaction [...] Gm, 6 Refills, Maintenance, 02/15/22 14:24:00 EDT, [place], [facility], Partial fill [...] tablet, 6 Refills, Maintenance, 11/24/21 13:36:00 EST, [facility]/pharmacy#1972, 152.4, cm, 11/17/21 10:45:00 EST, Height, 77.2, [...] 11 Refills, Maintenance, 07/09/21 9:17:00 EDT, Tablet, [facility]/pharmacy #1972, Partial fill upon patient request if the prescription is for a schedule II opioid drug., 1 tablet By Mouth Daily, 152.4, cm, 07/03/21 10... Start Date: 07/09/21 Status: Ordered SUMAtriptan 25 mg oral tablet [...] has cervix. For fibroids 4-repeat in 2 [id number] 5-bone density done at [facility] on 07-24-19 6s/p bilateral mastectomy and immediate reconstruction. Social History Social History Type Response Smoking Status Former smoker, quit more than 30 days ago entered on: 09/22/21 Sex
--- OUTSIDE RECORDS SUMMARY | 2023-04-27 11:43 | XMS_ITS | Continuity of Care Document ---
Author Name Unknown Organization [facility] sandra Address [address] [place] [address] [address] [place] [address]- Care Team Providers Care Branch Service Associate Name Role Phone Zeinab Loo MD Primary Care Physician Encounter [facility] Date(s): 05/27/22 - 06/03/22 [facility] [address] [place] [address] Drive [address] [place] [address]- Attending Physician: Virginia Koehler Referring Physician: Zeinab Loo MD Allergies, Adverse [...] 5 Refills, Maintenance, 11/10/20 11:56:00 EST, Tablet, [facility]/pharmacy #1972, 152.4, cm, 11/07/20 12:02:00 EST, Height,78, kg, 05/15/20 8:23:00 EDT, Dry Weight Start Date: 11/10/20 Status: Ordered cyanocobalamin 1000 mcg/ml injectable solution 1 mL = 1,000 mcg, Intramuscular, Every 30 days, # 1 mL, 11 Refills, Maintenance, 07/09/21 9:16:00 EDT, Solution, [facility]/pharmacy #1972, 152.4, cm, 07/03/21 10:11:00 EDT, Height, [...] Gm, 6 Refills, Maintenance, 02/15/22 14:24:00 EDT, [place], [facility], Partial fill [...] Maintenance, 04/22/22 14:42:00 EDT, Tablet, [facility], Partial fill upon patient request [...] 11 Refills, Maintenance, 04/22/22 14:34:00 EDT, Tablet, [facility]/pharmacy #1972, Partial fill upon patient request if [...] has cervix. For fibroids 4-repeat in 2 [id number] 5-bone density done at [facility] on 07-24-19 6s/p bilateral mastectomy and immediate reconstruction. Vital Signs Most recent to oldest [Reference Range]: 1 Height 152.4 cm (05/27/22 11:48 AM) Social History Social History Type Response Smoking Status Former smoker, quit more than 30 days ago entered on: 09/22/21 Sex
--- OUTSIDE RECORDS SUMMARY | 2023-04-27 11:43 | XMS_ITS | Continuity of Care Document ---
Author Name Unknown Organization [facility] Address [address] [place] [address]- Care Team Providers Care Lead Person Name Role Phone Eze BOWEN, Zeinab Primary Care Physician Encounter [facility] Date(s): 08/10/22 - 09/09/22 [facility]/[address] [address]- Attending Physician: Admtr, Essie Admitting Physician: AdmtrEssie [...] Gm, 6 Refills, Maintenance, 02/15/22 14:24:00 EDT, [place], [facility], Partial fill [...] has cervix. For fibroids 5-repeat in 2 [id number] 6-bone density done at [facility] on 07-24-19 Social History Social History Type Response Smoking Status Former smoker, quit more than 30 days ago entered on: 07/27/22 Sex Note * Event Display: Bone Density, Non-BH Authored Date: * Event Display: Bone Density, Non-BH Authored Date: * Event Display: Bone Density, Non-BH Authored Date: * Event Display: Bone Density, Non-BH Authored Date: * Event Display: Non BH Lab Results Authored Date: Patient Care team information Care Team Personnel Name: Michelle De Leon Position: [facility] Onco RN Member Role: Primary Care Nurse Name: Angela Romero RN Position: [facility] RN Member Role: Primary Care Nurse Name: Anshul Finn RN Position: [facility] RN Member Role: Primary Care Nurse Name: Zeinab Loo MD Position: [facility] Primary Care Physician Member Role: PCP Address: Address: [address] [place] [address]- Name: Tono Mcneal RN Position: [facility] RN Member Role: Primary Care Nurse Care Team Related Persons Name: ALEYDA FREIRE Address: home [address] [place] [address] Name: JODY MOMIN Address: home [address] [place], [place] Name: TERRELL JUAREZ Address: home [address] [address] Name: CARIDAD RUVALCABA Address: home [address] [place] [address]
--- OUTSIDE RECORDS SUMMARY | 2023-04-27 11:43 | XMS_ITS | Continuity of Care Document ---
Author Name Unknown Organization [facility] Address [address] [place] [address]- Care Team Providers Care Manager Employee Relations Name Role Phone Eze BOWEN, Zeinab Primary Care Physician Encounter [facility] [place] Date(s): 01/05/22 - 04/22/22 [facility] [address] [place] [address]- Discharge Disposition: A-D/C Home Attending Physician: Neida Brown MD Admitting Physician: Neida Brown MD Referring Physician: Zeinab Loo MD Allergies, [...] 5 Refills, Maintenance, 11/10/20 11:56:00 EST, Tablet, [facility]/pharmacy #1972, 152.4, cm, 11/07/20 12:02:00 EST, Height,78, kg, 05/15/20 8:23:00 EDT, Dry Weight Start Date: 11/10/20 Status: Ordered cyanocobalamin 1000 mcg/ml injectable solution 1 mL = 1,000 mcg, Intramuscular, Every 30 days, # 1 mL, 11 Refills, Maintenance, 07/09/21 9:16:00 EDT, Solution, [facility]/pharmacy #1972, 152.4, cm, 07/03/21 10:11:00 EDT, [...] Gm, 6 Refills, Maintenance, 02/15/22 14:24:00 EDT, [place], [facility], Partial fill [...] 0 Refills, Maintenance, 04/22/22 14:42:00 EDT, Tablet, [facility] #[facility], Partial fill upon patient request [...] 11 Refills, Maintenance, 04/22/22 14:34:00 EDT, Tablet, [facility]/pharmacy #1972, Partial fill upon patient request [...] 1 Refills, Maintenance, 04/22/22 14:53:00 EDT, Tablet, [facility] #[facility], Partial fill upo... Start Date: [...] has cervix. For fibroids 4-repeat in 2 ubzfh=7348 5-bone density done at [facility] on 07-24- 6s/p bilateral mastectomy and immediate reconstruction. Vital Signs Most recent to oldest [Reference Range]: 1 Height 152.4 cm (01/07/22 1:01 PM) Weight 81.9 kg (01/07/22 1:01 PM) Pulse Rate [55-90 bpm] 70 bpm (01/07/22 1:01 PM) Body Mass Index [18.5-24.99] 35.26 *>HHI* (01/07/22 1:01 PM) Blood Pressure [90-138/55-84 mm Hg] 101/ 56mm Hg (01/07/22 1:01 PM) Temperature [96.8-100.4 DegF] 97.5 DegF (01/07/22 1:01 PM) Blood pressure sites Arm, left (01/07/22 1:01 PM) Temperature Route Temporal (01/07/22 1:01 PM) Dry Weight 81.9 kg (01/07/22 1:01 PM) Weight Obtained Via Standing scale (01/07/22 1:01 PM) Dry Weight Obtained Via Standing scale (01/07/22 1:01 PM) Social History Social History Type Response Smoking Status Former smoker, quit more than 30 days ago entered on: 09/22/21 Sex
--- OUTSIDE RECORDS SUMMARY | 2023-04-27 11:43 | XMS_ITS | Continuity of Care Document ---
Author Name Unknown Organization [facility] Address [address] [place] [address]- Care Team Providers Care Bobbin Fixer Name Role Phone Eze BOWEN, Zeinab Primary Care Physician [facility] Date(s): 11/25/20 - 12/25/20 [facility]/[address] [address]- Allergies, Adverse Reactions, Alerts Substance Reaction Severity [...] tablet By Mouth 2 times a day,x30 days,Instr:[id number], Vit D 400 units, 152.4, cm, 12/05/19 [...] tablet, 3 Refills, Maintenance, 03/31/20 15:44:00 EDT, [facility]/pharmacy #1972, 152.4, cm, 03/05/20 8:02:00 EDT, Height, [...] has cervix. For fibroids 4-repeat in 2 tlprf=9603 5-bone density done at [facility] on 07-24-19 6s/p bilateral mastectomy and immediate reconstruction. Social History Social History Type Response Smoking Status Former smoker; Tobac co user in household: No; Type: Cigarettes; Other: quit smoking 12 yrs ago; Tobacco use times per day: 1-2 cigerettes per day; Number of years: 2; entered on: 07/22/15 Sex
--- OUTSIDE RECORDS SUMMARY | 2023-04-27 11:43 | XMS_ITS | Continuity of Care Document ---
Author Name Unknown Organization [facility] Address [address] [place] [address]- Care Team Providers Care Oncology Nurse Navigator Name Role Phone Eze BOWEN, Zeinab Primary Care Physician ( [phone] [place] [facility] [place] Date(s): 09/21/22 - 10/21/22 [facility]/[address] [address]- [place] Allergies, Adverse Reactions, Alerts Substance Reaction [...] Gm, 6 Refills, Maintenance, 02/15/22 14:24:00 EDT, [place], [facility], Partial fill [...] has cervix. For fibroids 5-repeat in 2 [id number] 6-bone density done at [facility] on 07-24-19 Social History Social History Type Response Smoking Status Former smoker, quit more than 30 days ago entered on: 07/27/22 Sex Patient Care team information Care Team Personnel Name: Michelle De Leon Position: [facility] Onco RN Member Role: Primary Care Nurse Name: Angela Romero RN Position: [facility] RN Member Role: Primary Care Nurse Name: Anshul Finn RN Position: [facility] RN Member Role: Primary Care Nurse Name: Zeinab Loo MD Position: [facility] Primary Care Physician Member Role: PCP Address: Address: [address] [place] [address]- Name: Tono Mcneal RN Position: [facility] RN Member Role: Primary Care Nurse Care Team Related Persons Name: ALEYDA FREIRE Address: home [address] [place] [address] Name: JODY MOMIN Address: home [address] [facility] [address] [place] [address] Name: TERRELL JUAREZ Address: home [address] [address] Name: CARIDAD RUVALCABA Address: home [address] [place] [address]
--- OUTSIDE RECORDS SUMMARY | 2023-04-27 11:43 | XMS_ITS | Continuity of Care Document ---
Author Name Unknown Organization [facility] Address [address] [place] [address] [address] [place] [address]- Care Team Providers Care Woven Wood Shade Assembler Name Role Phone Eze BOWEN, Zeinab Primary Care Physician ( [phone] Encounter [facility] Date(s): 12/03/20 - 01/02/21 [facility] [address] [place] [address]- Allergies, Adverse Reactions, Alerts Substance Reaction Severity [...] tablet By Mouth 2 times a day,x30 days,Instr:[id number], Vit D 400 units, 152.4, cm, 12/05/19 [...] has cervix. For fibroids 4-repeat in 2 aaxkl=0883 5-bone density done at [facility] on 07-24-19 6s/p bilateral mastectomy and immediate reconstruction. Social History Social History Type Response Smoking Status Former smoker; Tobac co user in household: No; Type: Cigarettes; Other: quit smoking 12 yrs ago; Tobacco use times per day: 1-2 cigerettes per day; Number of years: 2; entered on: 07/22/15 Sex
--- OUTSIDE RECORDS SUMMARY | 2023-04-27 11:43 | XMS_ITS | Continuity of Care Document ---
Author Name Unknown Organization [facility] Address [address] [place] [address] Dri [address] [place] [address]- Care Team Providers Care Physiotherapist'S Assistant Name Role Phone Eze BOWEN, Zeinab Primary Care Physician En[place] [facility] [place] Date(s): 04/16/20 - 04/23/20 [facility] [address] [place] [address]- [facility] Attending Physician: Riya Devries Allergies, Adverse Reactions, Alerts Substance Reaction Severity [...] pain, # 50 tablet, 5 Refills, Maintenance, 04/22/20 17:06:00 EDT, Tablet, [facility], 152.4, cm, 03/05/20 8:02:00 EDT, Height, 73, kg, 03/05/20 8:02:00 EDT, Dry Weight Start Date: 04/22/20 Status: Ordered albuterol CFC free 90 mcg/inh inhalation aerosol 2, puffs, Inhalation, 4 times a day, PRN, # 18 Gm, Refills 3, Tot. Refills 3, Maintenance, 10/20/1912:28:52 EST, Aerosol, Route to Pharmacy Electronically, [id number], [facility]/pharmacy #1972, Compound Start Date: 10/20/18 Status: Ordered Calcium 600 +D oral tablet 1 tablet, By Mouth, 2 times a day, calcium 600, Vit D 400 units, # 60 tablet, 6 Refills, Maintenance, 01/21/20 14:42:00 EDT, [facility]/pharmacy #1972, 1 tablet By Mouth 2 times a day,x30 days,Instr:[id number], Vit D 400 units, 152.4, cm, 12/05/19 [...] has cervix. For fibroids 3-repeat in 2 hakzt=0619 4-bone density done at [facility] on 07-24-19 5s/p bilateral mastectomy and immediate reconstruction. Social History Social History Type Response Smoking Status Former smoker; Tobac co user in household: No; Type: Cigarettes; Other: quit smoking 12 yrs ago; Tobacco use times per day: 1-2 cigerettes per day; Number of years: 2; entered on: 07/22/15 Sex
--- OUTSIDE RECORDS SUMMARY | 2023-04-27 11:43 | XMS_ITS | Continuity of Care Document ---
Author Name Unknown Organization [facility] Address Unknown Care Team Providers Care Electromechanical Inspector Name Role Phone Eze BOWEN, Zeinab Primary Care Physician ( [phone] Encounter [facility] Date(s): 12/09/21 - 01/08/22 [facility] Allergies, Adverse Reactions, Alerts Substance Reaction [...] Refills, Maintenance, 07/09/21 9:16:00 EDT, Solution, [facility]/pharmacy #1972, 152.4, cm, 07/03/21 10:11:00 EDT, Height, [...] # 90 tablet, 3 Refills, [facility], 152.4, cm, 09/22/21 9:03:00 EST, Height, 77.2, [...] has cervix. For fibroids 4-repeat in 2 cupzq=1062 5-bone density done at [facility] on 07-24- 6s/p bilateral mastectomy and immediate reconstruction. Social History Social History Type Response Smoking Status Former smoker, quit more than 30 days ago entered on: 09/22/21 Sex
--- OUTSIDE RECORDS SUMMARY | 2023-04-27 11:43 | XMS_ITS | Continuity of Care Document ---
Author Name Unknown Organization [facility] Address [address] [place] [address]- Care Team Providers Care Merchandise Associate Name Role Phone Eze BOWEN, Zeinab Primary Care Physician ( [phone] [place] [facility] [place] 10/27[place]22 [facility]/[address] [address]- [place] Allergies, Adverse Reactions, Alerts Substance Reaction [...] Gm, 6 Refills, Maintenance, 02/15/22 14:24:00 EDT, [place], [facility], Partial fill [...] has cervix. For fibroids 5-repeat in 2 ldbej=0819 6-bone density done at [facility] on 07-24-19 Social History Social History Type Response Smoking Status Former smoker, quit more than 30 days ago entered on: 07/27/22 Sex Patient Care team information Care Team Personnel Name: Michelle De Leon Position: [facility] Onco RN Member Role: Primary Care Nurse Name: Angela Romero RN Position: [facility] RN Member Role: Primary Care Nurse Name: Anshul Finn RN Position: [facility] RN Member Role: Primary Care Nurse Name: Zeinab Loo MD Position: [facility] Primary Care Physician Member Role: PCP Address: Address: [address] [place] [address]- Name: Tono Mcneal RN Position: [facility] RN Member Role: Primary Care Nurse Care Team Related Persons Name: ALEYDA FREIRE Address: home [address] [place] [address] Name: JODY MOMIN Address: home [address] [facility] [address] [place] [address] Name: TERRELL JUAREZ Address: home [address] [address] Name: CARIDAD RUVALCABA Address: home [address] [place] [address]
--- OUTSIDE RECORDS SUMMARY | 2023-04-27 11:43 | XMS_ITS | Continuity of Care Document ---
Author Name Unknown Organization [facility] Address [address] [place] [address]- Care Team Providers Care Boiler Operator Name Role Phone Zeinab Loo MD Primary Care Physician [facility]counter [facility] Date(s): 06/16/22 - 09/09/22 [facility]/[address] [address]- Attending Physician: Zeinab Loo MD Admitting Physician: Zeinab Loo MD Referring Physician: Zeinab Loo MD Allergies, [...] sanofi-pasteur VIS 03/2009 INNER 3Result Comment: Pharmacy 4Ain Note: TAVO VIS 04/15/2009 OUTER Medications acetaminophen 500 mg oral tablet 2 tablet = 1,000 mg, By Mouth, 3 times a day, PRN as needed for pain, # 50 tablet, 5 Refills, Maintenance, 11/10/20 11:56:00 EST, Tablet, [facility]/pharmacy #1972, 152.4, cm, 11/07/20 12:02:00 EST, Height,78, kg, 05/15/20 8:23:00 EDT, Dry Weight Start Date: 11/10/20 Status: Ordered cyanocobalamin 1000 mcg/ml injectable solution 1 mL = 1,000 mcg, Intramuscular, Every 30 days, # 1 mL, 11 Refills, Maintenance, 07/27/22 12:30:00 EDT, [place], [facility], 152.4, cm, 07/27/22 11:29:00 EDT, [...] Gm, 6 Refills, Maintenance, 02/15/22 14:24:00 EDT, [place], [facility], Partial fill [...] has cervix. For fibroids 5-repeat in 2 [id number]=0134 6-bone density done at [facility] on 07-24-19 Social History Social History Type Response Smoking Status Former smoker, quit more than 30 days ago entered on: 07/27/22 Sex Patient Care team information Care Team Personnel Name: Michelle De Leon Position: [facility] Onco RN Member Role: Primary Care Nurse Name: Agnela Romero RN Position: S RN Member Role: Primary Care Nurse Name: Anshul Finn RN Position: [facility] RN Member Role: Primary Care Nurse Name: Eze BOWEN, Zeinab Position: [facility] Primary Care Physician Member Role: PCP Address: Address: [address] [place] [address]- Name: Elizabet VERGARA, Tono Position: [facility] RN Member Role: Primary Care Nurse Care Team Related Persons Name: ALEYDA FREIRE Address: home [address] [place] [address] Name: JODY MOMIN Address: home [address] [facility] [address] [place] [address] Name: TERRELL JUAREZ Address: home [address] [address] Name: CARIDAD RUVALCABA Address: [address] [place] [address]
--- OUTSIDE RECORDS SUMMARY | 2023-04-27 11:43 | XMS_ITS | Continuity of Care Document ---
Author Name Unknown Organization [facility] sandra Address [address] [place] [address] [address] [place] [address]- Care Team Providers Care Curatorial Assistant Name Role Phone Eze BOWEN, Zeinab Primary Care Physician ( [phone] [facility]counter [facility] Date(s): 06/29/22 - 07/29/22 [facility] [address] [place], [place] [address] Allergies, Adverse Reactions, Alerts Substance Reaction Severity [...] 5 Refills, Maintenance, 11/10/20 11:56:00 EST, Tablet, [facility]/pharmacy #1972, 152.4, cm, 11/07/20 12:02:00 EST, [...] 13:52:00 EDT,... Start Date: 04/22/22 Status: Ordered Flonase 50 mcg/inh nasal spray 1 sprays, Nares, Both, 2 times a day, # 16 Gm, 6 Refills, Maintenance, 02/15/22 14:24:00 EDT, [place], [facility], Partial fill [...] Date: 03/16/22 Stop Date: 07/14/22 Status: Ordered melatonin 10 mg oral tablet [...] 11 Refills, Maintenance, 04/22/22 14:34:00 EDT, Tablet, [facility]/pharmacy #1972, Partial fill upon patient request if the prescription is for a schedule II opioid drug., 1 tablet By Mouth Daily, 152.4, cm, 04/22/22 1... Start Date: 04/22/22 Status: Ordered sertraline 50 [...] Date: 04/22/22 Status: Ordered Problem List Condition Confirmation Course [...] has cervix. For fibroids 5-repeat in 2 [id number]=9952 6-bone density done at [facility] on 07-24-19 Social History Social History Type Response Smoking Status Former smoker, quit more than 30 days ago entered on: 07/27/22 Sex Patient Care team information Personnel Name: Zeinab Loo MD Address: Address: [address] [place] [address]
--- OUTSIDE RECORDS SUMMARY | 2023-04-27 11:43 | XMS_ITS | Continuity of Care Document ---
Author Name Unknown Organization [facility] Address [address] [place] [address]- Care Team Providers Care Air Conditioning Engineer Name Role Phone Zeinab Loo MD Primary Care Physician ( [phone] Encounter [facility] [place] Date(s): 10/29/19 - 01/03/20 [facility] [address] [address]- [facility] Attending Physician: Zeinab Loo MD Admitting Physician: [...] 10/20/1912:28:52 EST, Aerosol, Route to Pharmacy Electronically, [id number], [facility]/pharmacy #1972, Compound Start Date: 10/20/18 Status: Ordered citalopram 20 mg oral tablet TAKE 1 TABLET BY MOUTH EVERY DAY WITH MEALS Start Date: 08/21/19 Status: Ordered cyanocobalamin 1000 mcg/ml injectable solution 1 mL = 1,000 mcg, Intramuscular, Every 30 days, # 10 mL, 6 Refills, Maintenance, 08/21/19 17:05:24 EST, Solution Start Date: 08/21/19 Status: Ordered hydrOXYzine hydrochloride 10 mg oral tablet TAKE 1/2-1 TABLET UP TO 3 TIMES A DAY NEEDED FOR ANXIETY Start Date: 08/21/19 Status: Ordered Insulin Syringe, BD Ultra-Fine 1 [...] THAN 3 TIMES PER WEEK. Start Date: 08/21/19 Status: Ordered tamoxifen 20 mg oral tablet 1 tablet = 20 mg, By Mouth, Daily, # 90 tablet, 3 Refills, Maintenance, 01/31/19 11:33:57 EDT Start Date: 01/31/19 Stop Date: 01/26/20 Status: Ordered traZODone 100 mg oral tablet 100 mg, 1, tablet, By Mouth, Daily at bedtime, Refills 0, Maintenance, 10/20/18 13:09:53 EST Start Date: 10/20/18 Status: Ordered Problem List Condition Effective Dates Status Health Status Inform ant Carcinoma of lower outer reinaldo drant of right breast(Confirmed) Active B12 deficiency(Confirmed) Active External hemorrhoids(Confirmed) 1 Active H/O abdominal hysterectomy(C onfirmed) 2 Active Hypothyroidism(Confirmed) Active Iron deficiency anemia(Confirmed) Active Osteopenia(Confirmed) 3 Active Bilateral breast cancer(Confirmed) 4 Active 1-Colonoscopy December 2018. Repeat in 10 years 2-and bilateral oophorectomy. Still has cervix. For fibroids 3-bone density done at [facility] on 07-24-19 4s/p bilateral mastectomy and immediate reconstruction. Social History Social History Type Response Smoking Status Former smoker; Tobac co user in household: No; Type: Cigarettes; Other: quit smoking 12 yrs ago; Tobacco use times per day: 1-2 cigerettes per day; Number of years: 2; entered on: 07/22/15 Sex
--- OUTSIDE RECORDS SUMMARY | 2023-04-27 11:43 | XMS_ITS | Continuity of Care Document ---
Author Name Unknown Organization [facility] Address [address] [place] [address] Dr [address] [place] [address]- Care Team Providers Care Quirk Sander Name Role Phone Eze BOWEN, Zeinab Primary Care Physician [facility] Date(s): 07/05/22 - 07/12/22 [facility] [address] [place] [address]- Attending Physician: Vinayak Persaud MD Allergies, Adverse [...] 5 Refills, Maintenance, 11/10/20 11:56:00 EST, Tablet, [facility]/pharmacy #1972, 152.4, cm, 11/07/20 12:02:00 EST, Height,78, kg, 05/15/20 8:23:00 EDT, Dry Weight Start Date: 11/10/20 Status: Ordered cyanocobalamin 1000 mcg/ml injectable solution 1 mL = 1,000 mcg, Intramuscular, Every 30 days, # 1 mL, 11 Refills, Maintenance, 07/09/21 9:16:00 EDT, Solution, [facility]/pharmacy #1972, 152.4, cm, 07/03/21 10:11:00 [...] Gm, 6 Refills, Maintenance, 02/15/22 14:24:00 EDT, [place], [facility], Partial fill [...] 11 Refills, Maintenance, 04/22/22 14:34:00 EDT, Tablet, [facility]/pharmacy #1972, Partial fill upon patient [...] 06/22/22 14:00:00 EDT, Route to Pharmacy Electronically, [facility], Partial fill upon patient request [...] Date: 06/18/22 Status: Ordered Problem List Condition Effective Dates [...] has cervix. For fibroids 4-repeat in 2 [id number]=8709 5-bone density done at [facility] on 07-24-19 6s/p bilateral mastectomy and immediate reconstruction. Vital Signs Most recent to oldest [Reference Range]: 1 Height 152.4 cm (07/05/22 10:31 AM) Weight 83.8 kg (07/05/22 10:31 AM) Body Mass Index [18.5-24.99] 36.08 *>HHI* (07/05/22 10:31 AM) Temperature [96.8-100.4 DegF] 97.9 DegF (07/05/22 10:31 AM) Temperature Route Temporal (07/05/22 10:31 AM) Weight Obtained Via Standing scale (07/05/22 10:31 AM) Social History Social History Type Response Smoking Status Former smoker, quit more than 30 days ago entered on: 09/22/21 Sex Care Team Personnel Name: Zeinab Loo MD Address: [address] [place] [address]-
--- OUTSIDE RECORDS SUMMARY | 2023-04-27 11:43 | XMS_ITS | Continuity of Care Document ---
Author Name Unknown Organization [facility] Address [address] [place] [address]- Care Team Providers Care Dry Finisher Name Role Phone Eze BOWEN, Zeinab Primary Care Physician ( [phone] [facility] Date(s): 04/22/20 - 05/22/20 [facility] [address] [address]- [place] Allergies, Adverse Reactions, Alerts Substance Reaction Severity [...] 10/20/1912:28:52 EST, Aerosol, Route to Pharmacy Electronically, [id number], [facility], Compound Start Date: 10/20/18 Status: Ordered Calcium 600 +D oral tablet 1 tablet, By Mouth, 2 times a day, calcium 600, Vit D 400 units, # 60 tablet, 6 Refills, Maintenance, 01/21/20 14:42:00 EDT, [facility]/pharmacy #1972, 1 tablet By Mouth 2 times a day,x30 days,Instr:[id number], Vit D 400 units, 152.4, cm, 12/05/19 [...] 2 Refills, Maintenance, 05/20/20 12:43:00 EDT, Tablet, [facility]/pharmacy #1972, 152.4, cm, 05/15/20 8:23:00 EDT, Height, [...] 05/14/20 15:01:00 EDT, Route to Pharmacy Electronically, [facility], Partial fill upon patient [...] tablet, 3 Refills, Maintenance, 03/31/20 15:44:00 EDT, [facility]/pharmacy #1972, 152.4, cm, 03/05/20 8:02:00 EDT, Height, 73, kg, 03/05/20 8:02:00 EDT, Dry Weight Start Date: 03/31/20 Stop Date: 03/26/21 Status: Ordered traZODone 100 mg oral tablet TAKE 1 TO 2 TABLETS BY MOUTH EVERY DAY AT BEDTIME NEEDED FOR SLEEP Start Date: 01/21/20 Status: Ordered Tylenol Extra Strength 500 mg oral tablet 1 tablet = 500 mg, By Mouth, Every 6 hours, PRN as needed for pain, for 14 days, (no more than 4 tabs a day), # 50 tablet, 0 Refills, Acute 05/28/20 15:00:00 EDT, 05/14/20 15:00:00 EDT, Tablet, [facility], 152.4, cm, 03/05/20 8:02:00... Start Date: 05/14/20 Stop Date: 05/28/20 Status: Ordered Problem List Condition Effective Dates [...] has cervix. For fibroids 3-repeat in 2 hbxja=2577 4-bone density done at [facility] on 07-24- 5s/p bilateral mastectomy and immediate reconstruction. Social History Social History Type Response Smoking Status Former smoker; Tobac co user in household: No; Type: Cigarettes; Other: quit smoking 12 yrs ago; Tobacco use times per day: 1-2 cigerettes per day; Number of years: 2; entered on: 07/22/15 Sex
--- OUTSIDE RECORDS SUMMARY | 2023-04-27 11:44 | XMS_ITS | Continuity of Care Document ---
Author Name Unknown Organization [facility] sandra Address [address] [place] [address] [address] [place] [address]- Care Team Providers Care Manager Human Resources Name Role Phone Eze BOWEN, Zeinab Primary Care Physician ( [phone] [facility]counter [facility] Date(s): 07/19/22 - 08/18/22 [facility] [address] [place], [place] [address] Attending Physician: AdmtrEssie Admitting Physician: AdmtrEssie Referring Physician: Admtr, Ar8 [...] Gm, 6 Refills, Maintenance, 02/15/22 14:24:00 EDT, [place], [facility], Partial fill [...] EDT, Heigh... Start Date: 08/09/22 Status: Ordered Problem List Condition Confirmation Course [...] has cervix. For fibroids 5-repeat in 2 csnmo=6040 6-bone density done at [facility] on 07-24-19 Social History Social History Type Response Smoking Status Former smoker, quit more than 30 days ago entered on: 07/27/22 Sex Patient Care team information Personnel Name: Zeinab Loo MD Address: Address: [address] [place] [address]
--- OUTSIDE RECORDS SUMMARY | 2023-04-27 11:44 | XMS_ITS | Continuity of Care Document ---
Author Name Unknown Organization [facility] Address [address] [place] [address]- Care Team Providers Care Aircraft Detail Draftsperson Name Role Phone Eze BOWEN, Zeinab Primary Care Physician Encounter [facility] Date(s): 10/03/20 - 11/02/20 [facility] Clementina [address] [place] [address]- Allergies, Adverse Reactions, Alerts Substance Reaction Severity [...] 4Admin Note: SANOFI-PASTEUR VIS 04/15/2009 OUTER Medications albuterol CFC free 90 mcg/inh inhalation aerosol 2, puffs, Inhalation, 4 times a day, PRN, # 18 Gm, Refills 3, Tot. Refills 3, Maintenance, 10/20/1912:28:52 EST, Aerosol, Route to Pharmacy Electronically, [id number], [facility], Compound Start Date: 10/20/18 Status: Ordered Calcium 600 +D oral tablet 1 tablet, By Mouth, 2 times a day, calcium 600, Vit D 400 units, # 60 tablet, 6 Refills, Maintenance, 01/21/20 14:42:00 EDT, [facility], 1 tablet By Mouth 2 times a day,x30 days,Instr:[id number], Vit D 400 units, 152.4, cm, 12/05/19 [...] has cervix. For fibroids 4-repeat in 2 doodc=0310 5-bone density done at [facility] on 07-24-19 6s/p bilateral mastectomy and immediate reconstruction. Social History Social History Type Response Smoking Status Former smoker; Tobac co user in household: No; Type: Cigarettes; Other: quit smoking 12 yrs ago; Tobacco use times per day: 1-2 cigerettes per day; Number of years: 2; entered on: 07/22/15 Sex
--- OUTSIDE RECORDS SUMMARY | 2023-04-27 11:44 | XMS_ITS | Continuity of Care Document ---
Author Name Unknown Organization [facility] Address [address] [place] [address]- Care Team Providers Care Paper Coater Name Role Phone Eze BOWEN, Zeinab Primary Care Physician ( [phone] En[place] [facility] [place] Date(s): 07/18/20 - 08/22/20 [facility] De [place]ina [address] [place] [address]- Attending Physician: Zeinab Loo MD Admitting Physician: [...] 10/20/1912:28:52 EST, Aerosol, Route to Pharmacy Electronically, [id number], [facility]/pharmacy #1972, Compound Start Date: 10/20/18 Status: Ordered Calcium 600 +D oral tablet 1 tablet, By Mouth, 2 times a day, calcium 600, Vit D 400 units, # 60 tablet, 6 Refills, Maintenance, 01/21/20 14:42:00 EDT, [facility]/pharmacy #1972, 1 tablet By Mouth 2 times a day,x30 days,Instr:[id number], Vit D 400 units, 152.4, cm, 12/05/19 [...] 6 Refills, Maintenance, 07/23/20 10:45:00 EDT, Tablet, [facility]/pharmacy #1972, 152.4, cm, 05/30/20 11:59:00 EDT, Height, [...] has cervix. For fibroids 4-repeat in 2 ymkmr=3935 5-bone density done at [facility] on 07-24-19 6s/p bilateral mastectomy and immediate reconstruction. Social History Social History Type Response Smoking Status Former smoker; Tobac co user in household: No; Type: Cigarettes; Other: quit smoking 12 yrs ago; Tobacco use times per day: 1-2 cigerettes per day; Number of years: 2; entered on: 07/22/15 Sex
--- OUTSIDE RECORDS SUMMARY | 2023-04-27 11:44 | XMS_ITS | Continuity of Care Document ---
Author Name Unknown Organization [facility] Address Unknown Care Team Providers Care Office Mail Clerk Name Role Phone Eze BOWEN, Zeinab Primary Care Physician [place] [facility] Date(s): 02/15/22 - 03/17/22 [facility] Attending Physician: Essie Villareal Admitting Physician: Essie [...] 5 Refills, Maintenance, 01/25/21 11:56:00 EST, Tablet, [facility]/pharmacy #1972, 152.4, cm, 11/07/20 12:02:00 EST, Height,78, kg, 05/15/20 8:23:00 EDT, Dry Weight Start Date: 11/10/20 Status: Ordered cyanocobalamin 1000 mcg/ml injectable solution 1 mL = 1,000 mcg, Intramuscular, Every 30 days, # 1 mL, 11 Refills, Maintenance, 07/09/21 9:16:00 EDT, Solution, [facility]/pharmacy #1972, 152.4, cm, 07/03/21 10:11:00 EDT, [...] Gm, 6 Refills, Maintenance, 02/15/22 14:24:00 EDT, [place], [facility], Partial fill [...] has cervix. For fibroids 4-repeat in 2 eqhvr=8954 5-bone density done at [facility] on 07-24-19 6s/p bilateral mastectomy and immediate reconstruction. Social History Social History Type Response Smoking Status Former smoker, quit more than 30 days ago entered on: 09/22/21 Sex
--- OUTSIDE RECORDS SUMMARY | 2023-04-27 11:44 | XMS_ITS | Continuity of Care Document ---
Author Name Unknown Organization [facility] Silvano sandra Address [address] [place] [address] [address] [place] [address]- Care Team Providers Care Wax Pumper Name Role Phone Eze BOWEN, Zeinab Primary Care Physician [facility]counter [facility] Date(s): 06/01/22 - 08/18/22 [facility] [address] [place], [place] [address] Attending Physician: Vinayak Persaud MD Allergies, Adverse [...] Maintenance, 11/10/20 11:56:00 EST, Tablet, [facility]/pharmacy #1972, 152.4, cm, 11/07/20 12:02:00 EST, [...] Gm, 6 Refills, Maintenance, 02/15/22 14:24:00 EDT, [place], [facility], Partial fill [...] has cervix. For fibroids 5-repeat in 2 vzbwm=3391 6-bone density done at [facility] on 07-24-19 Social History Social History Type Response Smoking Status Former smoker, quit more than 30 days ago entered on: 07/27/22 Sex Patient Care team information Personnel Name: Zeinab Loo MD Address: Address: [address] [place] [address]
--- OUTSIDE RECORDS SUMMARY | 2023-04-27 11:44 | XMS_ITS | Continuity of Care Document ---
Author Name Unknown Organization [facility] Address [address] [place] [address]- Care Team Providers Care Electric Mule Driver Name Role Phone Eze BOWEN, Zeinab Primary Care Physician ( [phone] Encounter [facility] Date(s): 07/18/20 - 08/17/20 [facility] [address] [address] [place] Allergies, Adverse Reactions, Alerts Substance Reaction [...] 10/20/1912:28:52 EST, Aerosol, Route to Pharmacy Electronically, [id number], [facility], Compound Start Date: 10/20/18 Status: Ordered Calcium 600 +D oral tablet 1 tablet, By Mouth, 2 times a day, calcium 600, Vit D 400 units, # 60 tablet, 6 Refills, Maintenance, 01/21/20 14:42:00 EDT, [facility]/pharmacy #1972, 1 tablet By Mouth 2 times a day,x30 days,Instr:[id number], Vit D 400 units, 152.4, cm, 12/05/19 [...] 6 Refills, Maintenance, 07/23/20 10:45:00 EDT, Tablet, [facility]/pharmacy #1972, 152.4, cm, 05/30/20 11:59:00 EDT, Height, [...] has cervix. For fibroids 4-repeat in 2 suorp=8143 5-bone density done at [facility] on 07-24-19 6s/p bilateral mastectomy and immediate reconstruction. Social History Social History Type Response Smoking Status Former smoker; Tobac co user in household: No; Type: Cigarettes; Other: quit smoking 12 yrs ago; Tobacco use times per day: 1-2 cigerettes per day; Number of years: 2; entered on: 07/22/15 Sex
--- OUTSIDE RECORDS SUMMARY | 2023-04-27 11:44 | XMS_ITS | Continuity of Care Document ---
Author Name Unknown Organization [facility] Address [address] [place] [address]- Care Team Providers Care Biomedical Engineering Professor Name Role Phone Eze BOWEN, Zeinab Primary Care Physician Encounter [facility] Date(s): 12/21/20 - 01/20/21 [facility] [address] [place] [address] Attending Physician: Essie Villareal Admitting Physician: AdmEssie pringle Referring Physician: Admtr, ArAgustina Allergies, Adverse Reactions, Alerts Substance Reaction Severity [...] 1 Refills, Maintenance, 10/03/20 11:27:00 EST, Solution, [facility]/pharmacy #1972, 152.4, cm, 05/30/20 11:59:00 EDT, Height, [...] 6 Refills, Maintenance, 07/23/20 10:45:00 EDT, Tablet, [facility]/pharmacy #1972, 152.4, cm, 05/30/20 11:59:00 EDT, Height, 78, kg, 05/15/20 8:23:00 EDT, DryWeight Start Date: 07/23/20 Stop Date: 02/18/21 Status: Ordered LORazepam 0.5 mg oral tablet TAKE 1 TABLET ONLY NEEDED FOR PANIC ATTACK, NO MORE THAN 3 TIMES PER WEEK. Start Date: 01/21/20 Status: Ordered Propranolol Refills 0, Maintenance, 01/08/21 [...] has cervix. For fibroids 4-repeat in 2 ztkiy=5209 5-bone density done at [facility] on 07-24-19 6s/p bilateral mastectomy and immediate reconstruction. Social History Social History Type Response Smoking Status Former smoker; Tobac co user in household: No; Type: Cigarettes; Other: quit smoking 12 yrs ago; Tobacco use times per day: 1-2 cigerettes per day; Number of years: 2; entered on: 07/22/15 Sex
--- OUTSIDE RECORDS SUMMARY | 2023-04-27 11:44 | XMS_ITS | Continuity of Care Document ---
Author Name Unknown Organization [facility] Address [address] [place] [address]- Care Team Providers Care Recreational Facilities Motel Manager Name Role Phone Eze BOWEN, Zeinab Primary Care Physician Encounter [facility] Date(s): 09/02/21 - 10/02/[address] [address] Attending Physician: AdmEssie pringle Admitting Physician: AdmtrEssie [...] 11 Refills, Maintenance, 07/09/21 9:16:00 EDT, Solution, [facility]/pharmacy #1972, 152.4, cm, 07/03/21 10:11:00 EDT, Height, [...] tablet, 0 Refills, Maintenance,09/17/21 9:26:00 EST, Tablet, [facility]/pharmacy #1972, she lost her bottle. Please allow [...] has cervix. For fibroids 4-repeat in 2 fbzaa=6546 5-bone density done at [facility] on 07-24-19 6s/p bilateral mastectomy and immediate reconstruction. Social History Social History Type Response Smoking Status Former smoker, quit more than 30 days ago entered on: 09/22/21 Sex
--- OUTSIDE RECORDS SUMMARY | 2023-04-27 11:44 | XMS_ITS | Continuity of Care Document ---
Author Name Unknown Organization [facility] Address Unknown Care Team Providers Care Lease Purchase Driver Name Role Phone Eze BOWEN, Zeinab Primary Care Physician ( [phone] Encounter [facility] Date(s): 09/21/21 - 10/21/21 [facility] Allergies, Adverse Reactions, Alerts Substance Reaction [...] 11 Refills, Maintenance, 07/09/21 9:16:00 EDT, Solution, [facility]/pharmacy #1972, 152.4, cm, 07/03/21 10:11:00 EDT, Height, [...] tablet, 0 Refills, Maintenance,09/17/21 9:26:00 EST, Tablet, [facility]/pharmacy #1972, she lost her bottle. Please allow [...] 11 Refills, Maintenance, 07/09/21 9:17:00 EDT, Tablet, [facility]/pharmacy #1972, Partial fill upon patient request if [...] has cervix. For fibroids 4-repeat in 2 vehvk=9288 5-bone density done at [facility] on 07-24-19 6s/p bilateral mastectomy and immediate reconstruction. Social History Social History Type Response Smoking Status Former smoker, quit more than 30 days ago entered on: 09/22/21 Sex
--- OUTSIDE RECORDS SUMMARY | 2023-04-27 11:44 | XMS_ITS | Continuity of Care Document ---
Author Name Unknown Organization [facility] Address Unknown Care Team Providers Care Family Law Mediator Name Role Phone Eze BOWEN, Zeinab Primary Care Physician En[place] [facility] Date(s): 09/14/21 - 10/14/21 [facility] Allergies, Adverse Reactions, Alerts Substance Reaction [...] 11 Refills, Maintenance, 07/09/21 9:16:00 EDT, Solution, [facility]/pharmacy #1972, 152.4, cm, 07/03/21 10:11:00 EDT, [...] tablet, 0 Refills, Maintenance,09/17/21 9:26:00 EST, Tablet, [facility], she lost her bottle. Please allow [...] has cervix. For fibroids 4-repeat in 2 tlksp=4871 5-bone density done at [facility] on 07-24-19 6s/p bilateral mastectomy and immediate reconstruction. Social History Social History Type Response Smoking Status Former smoker, quit more than 30 days ago entered on: 09/22/21 Sex
--- OUTSIDE RECORDS SUMMARY | 2023-04-27 11:44 | XMS_ITS | Continuity of Care Document ---
Author Name Unknown Organization [facility] Address [address] [place] [address]- Care Team Providers Care Vibration Technician Name Role Phone Eze BOWEN, Zeinab Primary Care Physician Encounter [facility] Date(s): 07/23/20 - 08/22/20 [facility] De [address] [address]- Attending Physician: Essie Villareal Admitting Physician: Essie [...] 10/20/1912:28:52 EST, Aerosol, Route to Pharmacy Electronically, [id number], [facility]/pharmacy #1972, Compound Start Date: 10/20/18 Status: Ordered Calcium 600 +D oral tablet 1 tablet, By Mouth, 2 times a day, calcium 600, Vit D 400 units, # 60 tablet, 6 Refills, Maintenance, 01/21/20 14:42:00 EDT, [facility]/pharmacy #1972, 1 tablet By Mouth 2 times a day,x30 days,Instr:[id number], Vit D 400 units, 152.4, cm, 12/05/19 [...] 6 Refills, Maintenance, 07/23/20 10:45:00 EDT, Tablet, [facility]/pharmacy #1972, 152.4, cm, 05/30/20 11:59:00 EDT, Height, [...] has cervix. For fibroids 4-repeat in 2 bxpqr=1927 5-bone density done at [facility] [...]
--- OUTSIDE RECORDS SUMMARY | 2023-04-27 11:44 | XMS_ITS | Continuity of Care Document ---
Author Name Unknown Organization [facility] Address [address] [place] [address]- Care Team Providers Care Cover Remover Name Role Phone Eze BOWEN, Zeinab Primary Care Physician [id number] Date(s): 11/30/19 - 02/04/20 [facility] [address] [place] [address]- [facility] Discharge Disposition: A-D/C Home Attending Physician: Neida [...] 10/20/1912:28:52 EST, Aerosol, Route to Pharmacy Electronically, [id number], [facility]/pharmacy #1972, Compound Start Date: 10/20/18 Status: Ordered Calcium 600 +D oral tablet 1 tablet, By Mouth, 2 times a day, calcium 600, Vit D 400 units, # 60 tablet, 6 Refills, Maintenance, 01/21/20 14:42:00 EDT, [facility]/pharmacy #1972, 1 tablet By Mouth 2 times a day,x30 days,Instr:[id number], Vit D 400 units, 152.4, cm, 12/05/19 [...] has cervix. For fibroids 3-repeat in 2 jaxxv=0041 4-bone density done at [facility] on 07-24-19 5s/p bilateral mastectomy and immediate reconstruction. Vital Signs Most recent to oldest [Reference Range]: 1 Height 152.40 cm (12/05/19 3:12 PM) Weight 70.2 kg (12/05/19 3:12 PM) Pulse Rate [55-90 bpm] 70 bpm (12/05/19 3:12 PM) Body Mass Index [18.5-24.99] 30.23 *>HHI* (12/05/19 3:12 PM) Blood Pressure [90-138/55-84 mm Hg] 114/ 65mm Hg (12/05/19 3:12 PM) Temperature [96.8-100.4 DegF] 97.5 DegF (12/05/19 3:12 PM) Blood pressure sites Arm, left (12/05/19 3:12 PM) Temperature Route Temporal (12/05/19 3:12 PM) Dry Weight 70.2 kg (12/05/19 3:12 PM) Weight Obtained Via Standing scale (12/05/19 3:12 PM) Dry Weight Obtained Via Standing scale (12/05/19 3:12 PM) Social History Social History Type Response Smoking Status Former smoker; Tobac co user in household: No; Type: Cigarettes; Other: quit smoking 12 yrs ago; Tobacco use times per day: 1-2 cigerettes per day; Number of years: 2; entered on: 07/22/15 Sex
--- OUTSIDE RECORDS SUMMARY | 2023-04-27 11:44 | XMS_ITS | Continuity of Care Document ---
Author Name Unknown Organization [facility] Address [address] [place] [address]- Care Team Providers Care Coating And Embossing Unit Operator Name Role Phone Eze BOWEN, Zeinab Primary Care Physician En[facility] Date(s): 11/30/19 - 12/10/19 [facility] [address] [place] [address] [facility] Attending Physician: Essie Villareal Admitting Physician: Essie Villareal Referring Physician: AdmEssie pringle Allergies, Adverse Reactions, Alerts Substance Reaction Severity [...] influenza virus vaccine, inactivated 1 08/05/10 Gi santsoh influenza virus vaccine, inactivated 2 09/17/09 Gi [...] 10/20/1912:28:52 EST, Aerosol, Route to Pharmacy Electronically, [id number], [facility]/pharmacy #1972, Compound Start Date: 10/20/18 Status: [...] cervix. For fibroids 3-bone density done at [facility] on 07-24-19 4s/p bilateral mastectomy and immediate reconstruction. Social History Social History Type Response Smoking Status Former smoker; Tobac co user in household: No; Type: Cigarettes; Other: quit smoking 12 yrs ago; Tobacco use times per day: 1-2 cigerettes per day; Number of years: 2; entered on: 07/22/15 Sex
--- OUTSIDE RECORDS SUMMARY | 2023-04-27 11:44 | XMS_ITS | Continuity of Care Document ---
Author Name Unknown Organization [facility] Address [address] [place] [address]- Care Team Providers Care Paid Intern Name Role Phone Eze BOWEN, Zeinab Primary Care Physician [facility]counter [facility] Date(s): 09/09/20 - 10/09/20 [facility] [place] [address] [place] [address]- Allergies, Adverse Reactions, Alerts Substance Reaction Severity [...] 10/20/1912:28:52 EST, Aerosol, Route to Pharmacy Electronically, [id number], [facility]/pharmacy #1972, Compound Start Date: 10/20/18 Status: Ordered Calcium 600 +D oral tablet 1 tablet, By Mouth, 2 times a day, calcium 600, Vit D 400 units, # 60 tablet, 6 Refills, Maintenance, 01/21/20 14:42:00 EDT, [facility], 1 tablet By Mouth 2 times a day,x30 days,Instr:[id number], Vit D 400 units, 152.4, cm, 12/05/19 [...] has cervix. For fibroids 4-repeat in 2 sezur=4041 5-bone density done at [facility] on 07-24-19 6s/p bilateral mastectomy and immediate reconstruction. Social History Social History Type Response Smoking Status Former smoker; Tobac co user in household: No; Type: Cigarettes; Other: quit smoking 12 yrs ago; Tobacco use times per day: 1-2 cigerettes per day; Number of years: 2; entered on: 07/22/15 Sex
--- OUTSIDE RECORDS SUMMARY | 2023-04-27 11:44 | XMS_ITS | Continuity of Care Document ---
Author Name Unknown Organization [facility] Address [address] [place] [address]- Care Team Providers Care Dehydrator Tender Name Role Phone Eze BOWEN, Zeinab Primary Care Physician Encounter [facility] ACCT R [id number] Date(s): 01/21/20 - 01/31/20 [facility]/[address] [address] [facility] Attending Physician: Essie Villareal Admitting [...] 10/20/1912:28:52 EST, Aerosol, Route to Pharmacy Electronically, [id number], [facility]/pharmacy #1972, Compound Start Date: 10/20/18 Status: Ordered Calcium 600 +D oral tablet 1 tablet, By Mouth, 2 times a day, calcium 600, Vit D 400 units, # 60 tablet, 6 Refills, Maintenance, 01/21/20 14:42:00 EDT, [facility]/pharmacy #1972, 1 tablet By Mouth 2 times a day,x30 days,Instr:[id number], Vit D 400 units, 152.4, cm, 12/05/19 [...] has cervix. For fibroids 3-repeat in 2 pufxh=3309 4-bone density done at [facility] on 07-24-19 5s/p bilateral mastectomy and immediate reconstruction. Social History Social History Type Response Smoking Status Former smoker; Tobac co user in household: No; Type: Cigarettes; Other: quit smoking 12 yrs ago; Tobacco use times per day: 1-2 cigerettes per day; Number of years: 2; entered on: 07/22/15 Sex
--- OUTSIDE RECORDS SUMMARY | 2023-04-27 11:44 | XMS_ITS | Continuity of Care Document ---
Author Name Unknown Organization [facility] Address Unknown Care Team Providers Care Ross Furnace Operator Name Role Phone Eze BOWEN, Zeinab Primary Care Physician Encounter [facility] Date(s): 06/29/21 - 07/29/21 [facility] Allergies, Adverse Reactions, Alerts Substance [...] cm, 05/30/20 11:59:00 EDT, Height, 78, kg, 05/15/:23:00 EDT, Dry Weight Start Date: 07/21/20 Status: [...] has cervix. For fibroids 4-repeat in 2 erbjz=6442 5-bone density done at [facility] on 07-24- 6s/p bilateral mastectomy and immediate reconstruction. Social History Social History Type Response Smoking Status Former smoker; Tobac co user in household: No; Type: Cigarettes; Other: quit smoking 12 yrs ago; Tobacco use times per day: 1-2 cigerettes per day; Number of years: 2; entered on: 07/22/15 Sex
--- OUTSIDE RECORDS SUMMARY | 2023-04-27 11:44 | XMS_ITS | Continuity of Care Document ---
Author Name Unknown Organization [facility] Address [address] [place] [address]- Care Team Providers Care Clock Maker Name Role Phone Zeinab Loo MD Primary Care Physician Encounter [facility] Date(s): 06/02/22 - 07/02/22 [facility]/[address] [address]- [place] Allergies, Adverse Reactions, Alerts Substance Reaction [...] 5 Refills, Maintenance, 11/10/20 11:56:00 EST, Tablet, [facility]/pharmacy #1972, 152.4, cm, 11/07/20 12:02:00 EST, Height,78, kg, 05/15/20 8:23:00 EDT, Dry Weight Start Date: 11/10/20 Status: Ordered cyanocobalamin 1000 mcg/ml injectable solution 1 mL = 1,000 mcg, Intramuscular, Every 30 days, # 1 mL, 11 Refills, Maintenance, 07/09/21 9:16:00 EDT, Solution, [facility]/pharmacy #1972, 152.4, cm, 07/03/21 10:11:00 [...] Gm, 6 Refills, Maintenance, 02/15/22 14:24:00 EDT, [place], [facility], Partial fill [...] 11 Refills, Maintenance, 04/22/22 14:34:00 EDT, Tablet, [facility]/pharmacy #1972, Partial fill upon patient [...] 06/22/22 14:00:00 EDT, Route to Pharmacy Electronically, [facility], Partial fill upon patient [...] has cervix. For fibroids 4-repeat in 2 pcwjo=9949 5-bone density done at [facility] on 07-24-19 6s/p bilateral mastectomy and immediate reconstruction. Social History Social History Type Response Smoking Status Former smoker, quit more than 30 days ago entered on: 09/22/21 Sex Care Team Personnel Name: Zeinab Loo MD Address: [address] [place] [address]-
--- OUTSIDE RECORDS SUMMARY | 2023-04-27 11:44 | XMS_ITS | Continuity of Care Document ---
Author Name Unknown Organization [facility] ion Address [address] [place] [address]- Care Team Providers Care Inspector Process Name Role Phone Eze BOWEN, Zeinab Primary Care Physician Encounter [facility] Date(s): 05/03/22 - 07/03/[address] [address]- Discharge Disposition: A-D/C Home Attending Physician: Zeinab Loo MD Admitting Physician: [...] Gm, 6 Refills, Maintenance, 02/15/22 14:24:00 EDT, [place], [facility], Partial fill [...] 11 Refills, Maintenance, 04/22/22 14:34:00 EDT, Tablet, [facility]/pharmacy #1972, Partial fill upon patient request if the prescription is for a schedule II opioid drug., 1 tablet By Mouth Daily, 152.4, cm, 04/22/22 1... Start Date: 04/22/22 Status: Ordered oxyCODONE 5 mg oral tablet 5 mg, 1, tablet, By Mouth, Every 6 hours, PRN, # 20 tablet, Refills 0, Tot. Refills 0, Maintenance,for pain, 06/22/22 14:00:00 EDT, Route to Pharmacy Electronically, [facility], Partial fill upon patient [...] has cervix. For fibroids 4-repeat in 2 [id number] 5-bone density done at [facility] on 07-24-19 6s/p bilateral mastectomy and immediate reconstruction. Social History Social History Type Response Smoking Status Former smoker, quit more than 30 days ago entered on: 09/22/21 Sex Care Team Personnel Name: Eze BOWEN, Zeinab Address: [address] [place] [address]-
--- OUTSIDE RECORDS SUMMARY | 2023-04-27 11:44 | XMS_ITS | Continuity of Care Document ---
Author Name Unknown Organization [facility] Address [address] [place] [address]- Care Team Providers Care Mortgage Loan Computation Clerk Name Role Phone Eze BOWEN, Zeinab Primary Care Physician Encounter [facility] Date(s): 09/20/22 - 10/20/22 [facility]/[address] [address]- [place] Allergies, Adverse Reactions, Alerts Substance Reaction [...] 5 Refills, Maintenance, 11/10/20 11:56:00 EST, Tablet, [facility]/pharmacy #1972, 152.4, cm, 11/07/20 12:02:00 EST, [...] Gm, 6 Refills, Maintenance, 02/15/22 14:24:00 EDT, [place], [facility], Partial fill [...] has cervix. For fibroids 5-repeat in 2 [id number] 6-bone density done at [facility] on 07-24-19 Social History Social History Type Response Smoking Status Former smoker, quit more than 30 days ago entered on: 07/27/22 Sex Patient Care team information Care Team Personnel Name: Michelle De Leon Position: [facility] Onco RN Member Role: Primary Care Nurse Name: Angela Romero RN Position: [facility] RN Member Role: Primary Care Nurse Name: Anshul Finn RN Position: [facility] RN Member Role: Primary Care Nurse Name: Zeinab Loo MD Position: [facility] Primary Care Physician Member Role: PCP Address: Address: [address] [place] [address]- Name: Tono Mcneal RN Position: [facility] RN Member Role: Primary Care Nurse Care Team Related Persons Name: LAEYDA FREIRE Address: home [address] [place] [address] Name: JODY MOMIN Address: home [address] [facility] [address] [place] [address] Name: TERRELL JUAREZ Address: home [address] [address] Name: CARIDAD RUVALCABA Address: home [address] [place] [address]
--- OUTSIDE RECORDS SUMMARY | 2023-04-27 11:44 | XMS_ITS | Continuity of Care Document ---
Author Name Unknown Organization [facility] Address [address] [place] [address]- Care Team Providers Care Insole And Outsole Splitter Name Role Phone Eze BOWEN, Zeinab Primary Care Physician Encounter [facility] Date(s): 02/14/23 - 03/16/23 [facility]/[address] [address]- [place] Allergies, Adverse Reactions, Alerts Substance Reaction [...] 5 Refills, Maintenance, 11/10/20 11:56:00 EST, Tablet, [facility]/pharmacy #1972, 152.4, cm, 11/07/20 12:02:00 EST, [...] Gm, 6 Refills, Maintenance, 02/15/22 14:24:00 EDT, [place], [facility], Partial fill [...] 5-osteopenia femoral neck 2022 6-repeat in 2 [id number]=1178 7-bone density done at [facility] on 07-24-19 Social History Social History Type Response Smoking Status Former smoker, quit more than 30 days ago entered on: 07/27/22 Sex Patient Care team information Care Team Personnel Name: Michelle De Leon Position: [facility] Onco RN Member Role: Primary Care Nurse Name: Angela Romero RN Position: [facility] RN Member Role: Primary Care Nurse Name: Anshul Finn RN Position: [facility] RN Member Role: Primary Care Nurse Name: Zeinab Loo MD Position: [facility] Physician - Primary Care Member Role: PCP Address: Address: [address] [place] [address]- Name: Tono Mcneal RN Position: [facility] RN Member Role: Primary Care Nurse Care Team Related Persons Name: ALEYDA FREIRE Address: home [address] [place] [address] Name: JODY MOMIN Address: home [address] [facility] [address] [place] [address] Name: TERRELL JUAREZ Address: home [address] [address] Name: CARIDAD RUVALCABA Address: home [address] [place] [address]
--- OUTSIDE RECORDS SUMMARY | 2023-04-27 11:44 | XMS_ITS | Continuity of Care Document ---
Author Name Unknown Organization [facility] Address [address] [place] [address] [address] [place] [address]- Care Team Providers Care Information Broker Name Role Phone Eze BOWEN, Zeinab Primary Care Physician Encounter [facility] Date(s): 08/20/22 - 09/19/22 [facility] [address] [place] [address]- Attending Physician: Essie Villareal Admitting Physician: AdmtrEssie Referring Physician: Admtr Ar8 Allergies, Adverse Reactions, Alerts Substance Reaction [...] 03/2009 INNER 3Result Comment: Pharmacy 4Ain Note: [facility] VIS 04/15/2009 OUTER Medications acetaminophen 500 mg oral tablet 2 tablet = 1,000 mg, By Mouth, 3 times a day, PRN as needed for pain, # 50 tablet, 5 Refills, Maintenance, 11/10/20 11:56:00 EST, Tablet, [facility]/pharmacy #1972, 152.4, cm, 11/07/20 12:02:00 EST, [...] Gm, 6 Refills, Maintenance, 02/15/22 14:24:00 EDT, [place], [facility], Partial fill [...] has cervix. For fibroids 5-repeat in 2 [id number]=2167 6-bone density done at [facility] on 07-24-19 Social History Social History Type Response Smoking Status Former smoker, quit more than 30 days ago entered on: 07/27/22 Sex Patient Care team information Care Team Personnel Name: Michelle De Leon Position: [facility] Onco RN Member Role: Primary Care Nurse Name: Angela Romero RN Position: [facility] RN Member Role: Primary Care Nurse Name: Anshul Finn RN Position: [facility] RN Member Role: Primary Care Nurse Name: Eze BOWEN, Zeinab Position: [facility] Primary Care Physician Member Role: PCP Address: Address: [address] [place] [address]- Name: Elizabet VERGARA, Tono Position: [facility] RN Member Role: Primary Care Nurse Care Team Related Persons Name: ALEYDA FREIRE Address: home [address] [place] [address] Name: JODY MOMIN Address: home [address] [facility] [address] [place] [address] Name: TERRELL JUAREZ Address: home [address] [address] Name: CARIDAD RUVALCABA Address: home [address] [place] [address]
--- OUTSIDE RECORDS SUMMARY | 2023-04-27 11:44 | XMS_ITS | Continuity of Care Document ---
Author Name Unknown Organization [facility] Address [address] [place] [address]- Care Team Providers Care Director Of Restaurant Name Role Phone Eze BOWEN, Zeinab Primary Care Physician Encounter [facility] Date(s): 11/20/20 - 12/20/20 [facility]/[address] [address]- Allergies, Adverse Reactions, Alerts Substance Reaction Severity [...] tablet By Mouth 2 times a day,x30 days,Instr:[id number], Vit D 400 units, 152.4, cm, 12/05/19 [...] tablet, 3 Refills, Maintenance, 03/31/20 15:44:00 EDT, [facility]/pharmacy #1972, 152.4, cm, 03/05/20 8:02:00 EDT, Height, [...] has cervix. For fibroids 4-repeat in 2 neswu=2052 5-bone density done at [facility] on 07-24-19 6s/p bilateral mastectomy and immediate reconstruction. Social History Social History Type Response Smoking Status Former smoker; Tobac co user in household: No; Type: Cigarettes; Other: quit smoking 12 yrs ago; Tobacco use times per day: 1-2 cigerettes per day; Number of years: 2; entered on: 07/22/15 Sex
--- OUTSIDE RECORDS SUMMARY | 2023-04-27 11:44 | XMS_ITS | Continuity of Care Document ---
Author Name Unknown Organization [facility] Address [address] [place] [address]- Care Team Providers Care Precast Concrete Products Installer Name Role Phone Eze BOWEN, Zeinab Primary Care Physician Encounter [facility] Date(s): 04/17/20 - 05/17/[address] [address]- [facility] Allergies, Adverse Reactions, Alerts Substance Reaction [...] 10/20/1912:28:52 EST, Aerosol, Route to Pharmacy Electronically, [id number], [facility], Compound Start Date: 10/20/18 Status: Ordered Calcium 600 +D oral tablet 1 tablet, By Mouth, 2 times a day, calcium 600, Vit D 400 units, # 60 tablet, 6 Refills, Maintenance, 01/21/20 14:42:00 EDT, [facility], 1 tablet By Mouth 2 times a day,x30 days,Instr:[id number], Vit D 400 units, 152.4, cm, 12/05/19 15:12:00... Start Date: 01/21/20 Stop Date: 08/18/20 Status: Ordered citalopram 40 mg oral tablet TAKE 1 TABLET BY MOUTH EVERYDAY AT BEDTIME Start Date: 01/21/20 Status: Ordered clindamycin 300 mg oral capsule 1 capsule = 300 mg, By Mouth, Every 6 hours, for 5 days, # 20 capsule, 0 Refills, Acute 05/19/20 15:01:00 EDT, 05/14/20 15:01:00 EDT, Capsule, [facility], 152.4, cm, 03/05/20 8:02:00EDT, Height, 73, kg, 03/05/20 8:02:00 EDT, Dry Weight Start Date: 05/14/20 Stop Date: 05/19/20 Status: Ordered cyanocobalamin 1000 mcg/ml injectable solution [...] 05/14/20 15:01:00 EDT, Route to Pharmacy Electronically, [facility], Partial fill upon patient [...] tablet, 3 Refills, Maintenance, 03/31/20 15:44:00 EDT, [facility]/pharmacy #1972, 152.4, cm, 03/05/20 8:02:00 EDT, [...] 05/28/20 15:00:00 EDT, 05/14/20 15:00:00 EDT, Tablet, [facility], 152.4, cm, 03/05/20 8:02:00... [...] has cervix. For fibroids 3-repeat in 2 pdvjt=2625 4-bone density done at [facility] on 07-24-19 5s/p bilateral mastectomy and immediate reconstruction. Social History Social History Type Response Smoking Status Former smoker; Tobac co user in household: No; Type: Cigarettes; Other: quit smoking 12 yrs ago; Tobacco use times per day: 1-2 cigerettes per day; Number of years: 2; entered on: 07/22/15 Sex
--- OUTSIDE RECORDS SUMMARY | 2023-04-27 11:45 | XMS_ITS | Continuity of Care Document ---
Author Name Unknown Organization [facility] Address [address] [place] [address]- Care Team Providers Care Supervisor Brake Repair Name Role Phone Eze BOWEN, Zeinab Primary Care Physician Encounter [facility] Date(s): 12/21/20 - 03/24/21 [facility] [address] [place] [address] Discharge Disposition: A-D/C Home Attending Physician: Neida [...] 1 Refills, Maintenance, 10/03/20 11:27:00 EST, Solution, [facility]/pharmacy #1972, 152.4, cm, 05/30/20 11:59:00 EDT, Height, [...] Maintenance, 07/23/20 10:45:00 EDT, Tablet, [facility]/pharmacy #1972, 152.4, cm, 05/30/20 11:59:00 EDT, Height, [...] has cervix. For fibroids 4-repeat in 2 vwonk=0606 5-bone density done at [facility] on 07-24-19 6s/p bilateral mastectomy and immediate reconstruction. Vital Signs Most recent to oldest [Reference Range]: 1 2 Height 152.4 cm (01/22/21 12:48 PM) 152.4 cm (01/08/21 2:27 PM) Weight 77.2 kg (01/22/21 12:48 PM) 70.6 kg (01/08/21 2:27 PM) Pulse Rate [55-90 bpm] 64 bpm (01/22/21 12:48 PM) 64 bpm (01/08/21 2:27 PM) Body Mass Index [18.5-24.99] 33.24 *>HHI* (01/22/21 12:48 PM) 30.4 *>HHI* (01/08/21:27 PM) Blood Pressure [90-138/55-84 mm Hg] 102/ 64mm Hg (01/22/21 12:48 PM) 109/76mm Hg (01/08/21 2:27 PM) Respiratory Rate [16-30 br/min] 16 br/mi n (01/22/21 12:48 PM) Temperature [96.8-100.4 DegF] 97.2 DegF (01/22/21 12:48 PM) 97.9 DegF (01/08/21:27 PM) Blood pressure sites Arm, left (01/22/21 12:48 PM) Arm, right (01/08/21 2:27 PM) Temperature Route Temporal (01/22/21 12:48 PM) Temporal (01/08/21 2:27 PM) Dry Weight 77.2 kg (01/22/21 12:48 PM) 70.6 kg (01/08/21 2:27 PM) Weight Obtained Via Standing scale (01/22/21 12:48 PM) Standing scale (01/08/21 2:27 PM) Dry Weight Obtained Via Standing scale (01/22/21 12:48 PM) Standing scale (01/08/21 2:27 PM) Social History Social History Type Response Smoking Status Former smoker; Tobac co user in household: No; Type: Cigarettes; Other: quit smoking 12 yrs ago; Tobacco use times per day: 1-2 cigerettes per day; Number of years: 2; entered on: 07/22/15 Sex
--- OUTSIDE RECORDS SUMMARY | 2023-04-27 11:45 | XMS_ITS | Continuity of Care Document ---
Author Name Unknown Organization [facility] Address [address] [place] [address]- Care Team Providers Care Commodity Buyer Name Role Phone Eze BOWEN, Zeinab Primary Care Physician Encounter [facility] Date(s): 02/28/23 - 03/30/23 [facility]/[address] [address]- [place] Allergies, Adverse Reactions, Alerts Substance Reaction [...] Maintenance, 03/15/23 11:39:00 EDT, [place], [facility], Partial fill uponpatient request if [...] 0 Refills, Maintenance, 04/22/22 14:54:00 EDT, Gel, [facility], Partial fill upon [...] Gm, 6 Refills, Maintenance, 02/15/22 14:24:00 EDT, [place], [facility], Partial fill [...] 5-osteopenia femoral neck 2022 6-repeat in 2 [id number]=4123 7-bone density done at [facility] on 07-24-19 Social History Social History Type Response Smoking Status Former smoker, quit more than 30 days ago entered on: 07/27/22 Sex Patient Care team information Care Team Personnel Name: Michelle De Leon Position: [facility] Onco RN Member Role: Primary Care Nurse Name: Angela Romero RN Position: S RN Member Role: Primary Care Nurse Name: Anshul Finn RN Position: [facility] RN Member Role: Primary Care Nurse Name: Zeinab Loo MD Position: [facility] Physician - Primary Care Member Role: PCP Address: Address: [address] [place] [address]- Name: Tono Mcneal RN Position: [facility] RN Member Role: Primary Care Nurse Care Team Related Persons Name: ALEYDA FREIRE Address: home [address] [place] [address] Name: JODY MOMIN Address: home [address] [facility] [address] [place] [address] Name: TERRELL JUAREZ Address: home [address] [address] Name: CARIDAD RUVALCABA Address: [address] [place] [address]
--- OUTSIDE RECORDS SUMMARY | 2023-04-27 11:45 | XMS_ITS | Continuity of Care Document ---
Author Name Unknown Organization [facility] Sil[facility] sandra Address [address] [place] [address] [address] [place] [address]- Care Team Providers Care Bsa/Aml Compliance Officer Name Role Phone Zeinab Loo MD Primary Care Physician Encounter [facility] Date(s): 06/30/20 - 07/07/20 [facility] [address] [place] [address]- [facility] Attending Physician: Riya Devries Referring Physician: Zeinab Loo MD Allergies, Adverse [...] 10/20/1912:28:52 EST, Aerosol, Route to Pharmacy Electronically, [id number], [facility], Compound Start Date: 10/20/18 Status: Ordered Calcium 600 +D oral tablet 1 tablet, By Mouth, 2 times a day, calcium 600, Vit D 400 units, # 60 tablet, 6 Refills, Maintenance, 01/21/20 14:42:00 EDT, [facility]/pharmacy #1972, 1 tablet By Mouth 2 times a day,x30 days,Instr:[id number], Vit D 400 units, 152.4, cm, 12/05/19 [...] x 8 mm (516in) See Instructions, # 10 units, Maintenance, dx: to use with B12 injections monthly, 03/05/19 15:25:54 EDT, Compound Start Date: 03/05/19 Status: Ordered levothyroxine 0.025 mg oral tablet 1 tablet = 25 mcg, By Mouth, Daily, # 30 tablet, 2 Refills, Maintenance, 05/20/20 12:43:00 EDT, Tablet, [facility]/pharmacy #1972, 152.4, cm, 05/15/20 8:23:00 EDT, [...] 05/14/20 15:01:00 EDT, Route to Pharmacy Electronically, [facility], Partial fill upon [...] tablet, 3 Refills, Maintenance, 03/31/20 15:44:00 EDT, [facility]/pharmacy #1972, 152.4, cm, 03/05/20 8:02:00 EDT, [...] has cervix. For fibroids 3-repeat in 2 [id number]=0068 4-bone density done at [facility] on 07-24-19 5s/p bilateral mastectomy and immediate reconstruction. Vital Signs Most recent to oldest [Reference Range]: 1 Weight 73.63 kg (06/30/20 2:41 PM) Temperature [96.8-100.4 DegF] 96.3 DegF *L* (06/30/20 2:41 PM) Social History Social History Type Response Smoking Status Former smoker; Tobac co user in household: No; Type: Cigarettes; Other: quit smoking 12 yrs ago; Tobacco use times per day: 1-2 cigerettes per day; Number of years: 2; entered on: 07/22/15 Sex
--- OUTSIDE RECORDS SUMMARY | 2023-04-27 11:45 | XMS_ITS | Continuity of Care Document ---
Author Name Unknown Organization [facility] Address [address] [place] [address]- Care Team Providers Care Cut Off Machine Unloader Name Role Phone Eze BOWEN, Zeinab Primary Care Physician Encounter [facility] Date(s): 09/03/22 - 10/03/22 [facility] [address] [place] [address]- [place] Allergies, Adverse Reactions, Alerts Substance Reaction [...] influenza virus vaccine, inactivated 2 09/17/09 Gi santsoh SARS-CoV-2 (COVID-19) mRNA BNT-162b2 vac 10/28/21 Given [...] 5 Refills, Maintenance, 11/10/20 11:56:00 EST, Tablet, [facility]/pharmacy #1972, 152.4, cm, 11/07/20 12:02:00 EST, Height,78, kg, 05/15/20 8:23:00 EDT, Dry Weight Start Date: 11/10/20 Status: Ordered cyanocobalamin 1000 mcg/ml injectable solution 1 mL = 1,000 mcg, Intramuscular, Every 30 days, # 1 mL, 11 Refills, Maintenance, 07/27/22 12:30:00 EDT, Solution, [facility], 152.4, cm, 07/27/22 11:29:00 EDT, [...] Maintenance, 04/22/22 14:54:00 EDT, Gel, [facility], Partial fill upon patient request [...] EDT, Route to Pharmacy Electronically, [facility]... Start Date: 08/09/22 Status: Ordered Flonase 50 mcg/inh nasal spray 1 sprays, Nares, Both, 2 times a day, # 16 Gm, 6 Refills, Maintenance, 02/15/22 14:24:00 EDT, [place], [facility], Partial fill [...] has cervix. For fibroids 5-repeat in 2 [id number]=3484 6-bone density done at [facility] on 07-24-19 Social History Social History Type Response Smoking Status Former smoker, quit more than 30 days ago entered on: 07/27/22 Sex Patient Care team information Care Team Personnel Name: Michelle De Leon Position: [facility] Onco RN Member Role: Primary Care Nurse Name: Angela Romero RN Position: [facility] RN Member Role: Primary Care Nurse Name: Anshul Finn RN Position: [facility] RN Member Role: Primary Care Nurse Name: Zeinab Loo MD Position: [facility] Primary Care Physician Member Role: PCP Address: Address: [address] [place] [id number] Name: Elizabet VERGARA, Tono Position: [facility] RN Member Role: Primary Care Nurse Care Team Related Persons Name: ALEYDA FREIRE Address: home [address] [place] [address] Name: JODY MOMIN Address: home [address] [facility] [address] [place] [address] Name: TERRELL JUAREZ Address: home [address] [address] Name: CARIDAD RUVALCABA Address: [address] [place] [address]
--- OUTSIDE RECORDS SUMMARY | 2023-04-27 11:45 | XMS_ITS | Continuity of Care Document ---
Author Name Unknown Organization [facility] sandra Address [address] [place] [address] [address] [place] [address]- Care Team Providers Care Funeral Service Practitioner/Embalmer Name Role Phone Eze BOWEN, Zeinab Primary Care Physician ( [phone] Encounter [facility] Date(s): 11/23/19 - 11/30/19 [facility] [address] [place] [address]- [facility] Attending Physician: Vinayak Persaud MD Allergies, Adverse [...] 10/20/1912:28:52 EST, Aerosol, Route to Pharmacy Electronically, [id number], [facility]/pharmacy #1972, Compound Start Date: 10/20/18 Status: Ordered citalopram 20 mg oral tablet TAKE 1 TABLET BY MOUTH EVERY DAY WITH MEALS Start Date: 08/21/19 Status: Ordered cyanocobalamin 1000 mcg/ml injectable solution 1 mL = 1,000 mcg, Intramuscular, Every 30 days, # 10 mL, 6 Refills, Maintenance, 08/21/19 17:05:24 EST, Solution Start Date: 08/21/19 Status: Ordered ferrous sulfate 325 mg oral enteric coated tablet 325 mg, 1, tablet, By Mouth, Daily, take Miralax or stool softener PRN if constipation develops, # 30 tablet, Refills 11, Tot. Refills 11, Maintenance, 03/05/19 15:23:46 EDT, Route to Pharmacy Electronically, [id number], [facility]/... Start Date: 03/05/19 Status: Ordered hydrOXYzine hydrochloride 10 mg oral [...] cervix. For fibroids 3-bone density done at [facility] on 07-24-19 4s/p bilateral mastectomy and immediate reconstruction. Social History Social History Type Response Smoking Status Former smoker; Tobac co user in household: No; Type: Cigarettes; Other: quit smoking 12 yrs ago; Tobacco use times per day: 1-2 cigerettes per day; Number of years: 2; entered on: 07/22/15 Sex
--- OUTSIDE RECORDS SUMMARY | 2023-04-27 11:45 | XMS_ITS | Continuity of Care Document ---
Author Name Unknown Organization [facility] Address [address] [place] [address]- Care Team Providers Care Hospital Admitting Clerk Name Role Phone Eze BOWEN, Zeinab Primary Care Physician Encounter [facility] Date(s): 12/12/20 - 01/11/21 [facility] [address] [address]- Attending Physician: Essie Villareal Admitting Physician: Essie [...] 1 Refills, Maintenance, 10/03/20 11:27:00 EST, Solution, [facility]/pharmacy #1972, 152.4, cm, 05/30/20 11:59:00 [...] 6 Refills, Maintenance, 07/23/20 10:45:00 EDT, Tablet, [facility]/pharmacy #1972, 152.4, cm, 05/30/20 11:59:00 [...] has cervix. For fibroids 4-repeat in 2 [id number] 5-[facility] [...]
--- OUTSIDE RECORDS SUMMARY | 2023-04-27 11:45 | XMS_ITS | Continuity of Care Document ---
Author Name Unknown Organization [facility] Address [address] [place] [address]- Care Team Providers Care Sawmill Hand Name Role Phone Eze BOWEN, Zeinab Primary Care Physician Encounter [facility] Date(s): 05/20/20 - 06/19/20 [facility] [place] [address] [place] [address]- [place] Allergies, Adverse Reactions, Alerts Substance Reaction [...] 10/20/1912:28:52 EST, Aerosol, Route to Pharmacy Electronically, [id number], [id number], Compound Start Date: 10/20/18 Status: Ordered Calcium 600 +D oral tablet 1 tablet, By Mouth, 2 times a day, calcium 600, Vit D 400 units, # 60 tablet, 6 Refills, Maintenance, 01/21/20 14:42:00 EDT, [facility]/pharmacy #1972, 1 tablet By Mouth 2 times a day,x30 days,Instr:, Vit D 400 units, 152.4, cm, 12/05/19 [...] 2 Refills, Maintenance, 05/20/20 12:43:00 EDT, Tablet, [facility]/pharmacy #1972, 152.4, cm, 05/15/20 8:23:00 EDT, Height, [...] 05/14/20 15:01:00 EDT, Route to Pharmacy Electronically, [facility], Partial fill upon patient [...] tablet, 3 Refills, Maintenance, 03/31/20 15:44:00 EDT, [facility]/pharmacy #1972, 152.4, cm, 03/05/20 8:02:00 EDT, Height, [...] has cervix. For fibroids 3-repeat in 2 [id number] 4-bone density done at [facility] on 07-24-19 5s/p bilateral mastectomy and immediate reconstruction. Social History Social History Type Response Smoking Status Former smoker; Tobac co user in household: No; Type: Cigarettes; Other: quit smoking 12 yrs ago; Tobacco use times per day: 1-2 cigerettes per day; Number of years: 2; entered on: 07/22/15 Sex
--- OUTSIDE RECORDS SUMMARY | 2023-04-27 11:45 | XMS_ITS | Continuity of Care Document ---
Author Name Unknown Organization [facility] ion Address [address] [place] [address]- Care Team Providers Care Central Office Maintainer Name Role Phone Eze BOWEN, Zeinab Primary Care Physician ( [phone] Encounter [facility] Date(s): 05/03/22 - 06/02/[address] [address] Attending Physician: Admtr, [id number] Admitting Physician: Admtr, [id number] Referring Physician: Admtr, Ar8 Allergies, Adverse Reactions, [...] 5 Refills, Maintenance, 11/10/20 11:56:00 EST, Tablet, [facility]/pharmacy #1972, 152.4, cm, 11/07/20 12:02:00 EST, Height,78, kg, 05/15/20 8:23:00 EDT, Dry Weight Start Date: 11/10/20 Status: Ordered cyanocobalamin 1000 mcg/ml injectable solution 1 mL = 1,000 mcg, Intramuscular, Every 30 days, # 1 mL, 11 Refills, Maintenance, 07/09/21 9:16:00 EDT, Solution, [facility]/pharmacy #1972, 152.4, cm, 07/03/21 10:11:00 [...] Gm, 6 Refills, Maintenance, 02/15/22 14:24:00 EDT, [place], [facility], Partial [...] 0 Refills, Maintenance, 04/22/22 14:42:00 EDT, Tablet, [facility], Partial fill upon patient request [...] 11 Refills, Maintenance, 04/22/22 14:34:00 EDT, Tablet, [facility]/pharmacy #1972, Partial fill upon patient [...] 1 Refills, Maintenance, 04/22/22 14:53:00 EDT, Tablet, [facility] #[facility], Partial fill upo... Start Date: [...] has cervix. For fibroids 4-repeat in 2 [id number] 5-bone density done at [facility] on 07-24-19 6s/p bilateral mastectomy and immediate reconstruction. Social History Social History Type Response Smoking Status Former smoker, quit more than 30 days ago entered on: 09/22/21 Sex
--- OUTSIDE RECORDS SUMMARY | 2023-04-27 11:45 | XMS_ITS | Continuity of Care Document ---
Author Name Unknown Organization [facility] Silvano sandra Address [address] [place] [address] [address] [place] [address]- Care Team Providers Care Attenuator Name Role Phone Eze BOWEN, Zeinab Primary Care Physician Encounter [facility] Date(s): 11/23/19 - 12/03/19 [facility] [address] [place] [address]- [facility] Attending Physician: Essie Villareal Admitting Physician: Essie [...] 10/20/1912:28:52 EST, Aerosol, Route to Pharmacy Electronically, [id number], [facility]/pharmacy #1972, Compound Start Date: 10/20/18 Status: Ordered [...] 03/05/19 15:23:46 EDT, Route to Pharmacy Electronically, [id number], [facility] Start Date: 03/05/19 Status: Ordered hydrOXYzine hydrochloride [...] cervix. For fibroids 3-bone density done at [facility] on 07-24-19 4s/p bilateral mastectomy and immediate reconstruction. Social History Social History Type Response Smoking Status Former smoker; Tobac co user in household: No; Type: Cigarettes; Other: quit smoking 12 yrs ago; Tobacco use times per day: 1-2 cigerettes per day; Number of years: 2; entered on: 07/22/15 Sex
--- OUTSIDE RECORDS SUMMARY | 2023-04-27 11:45 | XMS_ITS | Continuity of Care Document ---
Author Name Unknown Organization [facility] Address [address] [place] [address]- Care Team Providers Care Collection Specialist Name Role Phone Eze BOWEN, Zeinab Primary Care Physician Encounter [facility] Date(s): 08/28/20 - 09/27/20 [facility] [place] [address] [place] [address]- Allergies, Adverse Reactions, Alerts Substance Reaction Severity [...] 10/20/1912:28:52 EST, Aerosol, Route to Pharmacy Electronically, [id number], [facility]/pharmacy #1972, Compound Start Date: 10/20/18 Status: Ordered Calcium 600 +D oral tablet 1 tablet, By Mouth, 2 times a day, calcium 600, Vit D 400 units, # 60 tablet, 6 Refills, Maintenance, 01/21/20 14:42:00 EDT, [facility]/pharmacy #1972, 1 tablet By Mouth 2 [...] 6 Refills, Maintenance, 07/23/20 10:45:00 EDT, Tablet, [facility]/pharmacy #1972, 152.4, cm, 05/30/20 11:59:00 EDT, [...] has cervix. For fibroids 4-repeat in 2 [id number] 5-bone density done at [facility] on 07-24-19 6s/p bilateral mastectomy and immediate reconstruction. Social History Social History Type Response Smoking Status Former smoker; Tobac co user in household: No; Type: Cigarettes; Other: quit smoking 12 yrs ago; Tobacco use times per day: 1-2 cigerettes per day; Number of years: 2; entered on: 07/22/15 Sex
--- OUTSIDE RECORDS SUMMARY | 2023-04-27 11:45 | XMS_ITS | Continuity of Care Document ---
Author Name Unknown Organization [facility] Address [address] [place] [address]- Care Team Providers Care Booking Officer Name Role Phone Eze BOWEN, Zeinab Primary Care Physician ( [phone] Encounter [facility] Date(s): 07/20/22 - 08/19/22 [facility]/[address] [address]- [place] Allergies, Adverse Reactions, Alerts Substance Reaction [...] 5 Refills, Maintenance, 11/10/20 11:56:00 EST, Tablet, [facility]/pharmacy #1972, 152.4, cm, 11/07/20 12:02:00 EST, [...] Gm, 6 Refills, Maintenance, 02/15/22 14:24:00 EDT, [place], [facility], Partial fill [...] has cervix. For fibroids 5-repeat in 2 [id number] 6-bone density done at [facility] on 07-24-19 Social History Social History Type Response Smoking Status Former smoker, quit more than 30 days ago entered on: 07/27/22 Sex Patient Care team information Personnel Name: Zeinab Loo MD Address: Address: [address] [place] [address]
[2023-04-27 12:01] VITALS: BMI 35.5
--- NOTE | 2023-04-27 12:09 | P.CONAN_ITS ---
[facility] Past Medical History Medical History Allergic rhinitis Anxiety Asthma B12 deficiency Breast cancer, right Chronic depression Hypothyroidism Iron deficiency anemia Obesity Osteopenia Functional capacity: independent ambulation Patient : Yes Surgical History Surgical History History of abdominoplasty History of arthrodesis History of carpal tunnel release History of cataract surgery History of cholecystectomy History of esophagogastroduodenoscopy (EGD) History of gastric bypass History of lumpectomy of right breast Hx of abdominal hysterectomy Hx of bilateral breast reduction surgery Hx of bilateral mastectomy Hx of section Hx of eye surgery History of Problems with Anesthesia: No Social History Social History Are you a primary transition of care specialist to a significant other at home: No Do you presently have visiting nurse or other home services: No Patient Tobacco Use Status: Never used Tobacco Meds Allergies Allergy/AdvReac Type Severity Reaction Status Date / Time Penicillins Allergy Intermediate Hives Verified 04/22/23 08:22 povidone-iodine Allergy Intermediate Hives Verified 04/22/23 08:22 [From Betadine] NSAIDS (Non-Steroidal AdvReac Intermediate Stomach Verified 04/22/23 08:22 Anti-Inflamma Upset, Ulcer Active Medications: Current Medications Albuterol Sulfate (Albuterol Sulfate (0.083%) 2.5 Mg/3 Ml Vial.Neb) 2.5 mg INHALE ONCE PRN PRN Reason: Shortness of Breath/Wheezing Lactated Ringer's (Lr) 1,000 mls @ 50 mls/hr IVCONT .Q20H [facility] Home Medications Medication Instructions Recorded Confirmed Last Taken Type acetaminophen 500 mg tablet 1,000 mg PO QID PRN Pain 12/01/22 04/22/23 Unknown History cholecalciferol (vitamin D3) 25 25 mcg PO DAILY 12/01/22 04/22/23 Unknown History mcg (1,000 unit) capsule (Vitamin D3) cyanocobalamin (vitamin B-12) 1,000 mcg IM QMONTH 12/01/22 04/22/23 Unknown History 1,000 mcg/mL injection solution cyclobenzaprine 5 mg tablet 5 mg PO BID PRN Muscle Spasm 12/01/22 04/22/23 Unknown History ferrous sulfate 325 mg (65 mg 325 mg PO DAILY 12/01/22 04/22/23 11/23/22 History iron) tablet fluticasone propionate 50 1 spray intranasal Q12H 12/01/22 04/22/23 Unknown History mcg/actuation nasal spray,suspension hydroxyzine HCl 10 mg tablet 10 mg PO TID PRN Anxiety 12/01/22 04/22/23 Unknown History levocetirizine 5 mg tablet 5 mg PO QPM 12/01/22 04/22/23 Unknown History levothyroxine 137 mcg tablet 137 mcg PO DAILY 12/01/22 04/22/23 12/08/22 07:15 History melatonin 10 mg tablet 20 mg PO BEDTIME 12/01/22 04/22/23 Unknown History sertraline 50 mg tablet 100 mg PO DAILY 12/01/22 04/22/23 Unknown History clonazepam 0.5 mg tablet 0.5 mg PO QD-BID PRN Migraine 04/22/23 04/22/23 Unknown History Headache sumatriptan succinate 25 mg tablet 25 mg PO DAILY PRN Migraine 04/22/23 04/22/23 Unknown History Headache Exam Exam Date and Time: April 27, 2023 1209 Height,Weight and Vital Signs: Height 5 ft Weight 82.4 kg Airway Mallampati Class: II TM Dist: >3cm Neck ROM: Full Loose/Missing/Broken Teeth: No Heart: RRR Lungs: CTA Assessment and Plan Assessment Anesthesia Assessment: Anesthesia Plan Discussed and Chart Reviewed Final Anesthetic Review History of Problems with Anesthesia: No NPO: Yes ASA Class: II Final Preanesthetic Review: Meds/Allgs Chart Reviewed, Consent Obtained/Reviewed and Anes Risks/Benef Reviewed Patient Risk: Low Procedure Risk: Low Anesthetic Plan Anesthetic Plan: GA Disposition: Standard PACU
[2023-04-27 13:06] VITALS: BP 123/62; PULSE 71; RESP 16; TEMP 36.2; O2SAT 100
[2023-04-27] MEDS: oxyCODONE HCl Immed Release 5 MG TABLET PO (13:09)
[2023-04-27 13:11] VITALS: BP 115/63; PULSE 78; RESP 16; O2SAT 98
[2023-04-27 13:16] VITALS: BP 114/64; PULSE 83; RESP 16; O2SAT 98
[2023-04-27 13:21] VITALS: BP 107/55; PULSE 83; RESP 16; O2SAT 98
[2023-04-27 13:36] VITALS: BP 103/62; PULSE 80; RESP 16; O2SAT 98
--- NOTE | 2023-04-27 15:16 | P.OPHTHAL_ITS ---
Ophthalmology Operative Note Date of Service: 04/27/23 Narrative: Diagnosis right hypertropia. Procedure release of left inferior oblique muscle with dissection of surrounding scar tissue. Surgeon Dr. Jones. Anesthesia general. Complications none. The patient was brought to the op erating room placed under general anesthesia. The eyes were prepped and draped in the usual sterile ophthalmic fashion. A lid speculum was placed in the left eye and resistance to elevation was found in adduction. A conjunctival incision was made in the inferotemporal fornix and the inferior and lateral rectus muscles were placed on large muscle hooks. The inferior oblique was carefully identified and found to be scarred to the edge of the lateral rectus muscle and surrounded by small areas of scar without fat. The inferior oblique muscle was released from the lateral rectus and surrounding scar tissue dissected free. No more resistance to elevation was found with forced ductions. The conjunctival edge was then recessed approximately 10 mm from the surgical Limbus. The patient was then awoken from general anesthesia and discharged to postoperative recovery in good condition.
== END 2023-04-27 14:21 | disposition home or self-care (01) ==
PROVIDERS: PCP Internal Medicine; Visit Provider Ophthalmology
PROC: (CPT 67314; principal; 2023-04-27 13:30)
DX: H50.6 Mechanical strabismus (principal); H50.22 Vertical strabismus, left eye; J45.909 Unspecified asthma, uncomplicated; D50.9 Iron deficiency anemia, unspecified; E03.9 Hypothyroidism, unspecified; Z79.51 Long term (current) use of inhaled steroids; Z88.8 Allergy status to other drugs, medicaments and biological substances; Z88.0 Allergy status to penicillin; Z79.899 Other long term (current) drug therapy
CPT/HCPCS: 67314; 67343; J0131; J1100; J1885; J2250; J2405; J3010